=== PATIENT | male | born 1970 | race Caucasian/White ===

== ENCOUNTER 2020-09-05 11:57 | Emergency (ER) | payer MEDICAID ==
[~2020-09-05] VITALS: Ht 180.3 cm; Wt 79.5 kg
[~2020-09-05 11:57] MED LIST: LIDOcaine 1% W/epiNEPHrine 1:100,000 20ml vial ONE
[2020-09-05 12:41] VITALS: BP 117/81
[2020-09-05] MEDS ORDERED: SULF1TAB45 PO (13:37)
[2020-09-05] MEDS ORDERED: CEPH250T PO (13:37)
== END 2020-09-05 14:01 | disposition home or self-care (01) ==
LOC: ER 11:57
DX: L02.512 Cutaneous abscess of left hand (principal); Z79.2 Long term (current) use of antibiotics
CPT/HCPCS: 10060; 26010; 99283

== ENCOUNTER 2020-09-11 19:40 | Emergency (ER) | payer MEDICAID ==
[~2020-09-11] VITALS: Ht 177.8 cm; Wt 77.3 kg
[~2020-09-11 19:40] MED LIST changes: +CEPH250T PO; -LIDOcaine 1% W/epiNEPHrine 1:100,000 20ml vial ONE; +SULF1TAB45 PO
[2020-09-11] MEDS ORDERED: CEPH250T PO (21:06)
[2020-09-11 21:10] VITALS: BP 123/83
== END 2020-09-11 21:11 | disposition home or self-care (01) ==
LOC: ER 19:40
DX: Z48.01 Encounter for change or removal of surgical wound dressing (principal); M79.642 Pain in left hand; Z79.899 Other long term (current) drug therapy
CPT/HCPCS: 99283

== ENCOUNTER 2021-03-10 08:05 | Emergency (ER) | payer MEDICAID, OTHER ==
[~2021-03-10] VITALS: Ht 180.3 cm; Wt 88.6 kg
[2021-03-10 08:14] VITALS: BP 155/90
[2021-03-10] MEDS ORDERED: SULF1TAB45 PO (08:46)
[2021-03-10] MEDS ORDERED: HYDROcodone/acetaminophen 5mg/325mg tablet PO ONE (08:50)
[2021-03-10] MEDS ORDERED: ondansetron 4mg rapidly disintigrating tab PO ONE (08:50)
== END 2021-03-10 09:14 ==
LOC: EEVIPCON 08:05 → ER 08:05
DX: K40.90 Unilateral inguinal hernia, without obstruction or gangrene, not specified as recurrent (principal); Z79.2 Long term (current) use of antibiotics
CPT/HCPCS: 99283; 99284

== ENCOUNTER 2021-12-06 12:12 | Emergency (ER) | payer MEDICAID, OTHER ==
[~2021-12-06] VITALS: Ht 177.8 cm; Wt 100.0 kg
[2021-12-06 12:43] VITALS: BP 143/86
--- NOTE | 2021-12-06 13:59 | NUR ---
Lab called for positive Covid 19 result. NEREIDA Hollins notified.
[2021-12-06] MEDS ORDERED: NIRM1TAB PO (14:06)
[2021-12-06] MEDS ORDERED: insulin regular, human 10 units/0.1 ml syringe SQ ONE (14:10)
== END 2021-12-06 14:18 | disposition home or self-care (01) ==
LOC: ER 12:13
DX: U07.1 COVID-19 (principal); I10 Essential (primary) hypertension; E78.00 Pure hypercholesterolemia, unspecified; E11.9 Type 2 diabetes mellitus without complications; Z79.899 Other long term (current) drug therapy
CPT/HCPCS: 71045; 87502; 87503; 87635; 99284; C9803

== ENCOUNTER 2022-01-17 20:33 | Emergency (ER) | payer MEDICAID ==
[~2022-01-17] VITALS: Ht 177.8 cm; Wt 84.1 kg
[~2022-01-17 20:33] MED LIST changes: -CEPH250T PO; +NIRM1TAB PO; -SULF1TAB45 PO
[2022-01-17 22:00] LABS: BASOPHILS % (AUTO) 0.6 % (0-1); EOSINOPHILS # (AUTO) 0.1 X10'3 (0-0.9); EOSINOPHILS % (AUTO) 1.2 % (0-6); HEMATOCRIT 46.9 % (42.0-52.0); HEMOGLOBIN 16.1 g/dl (14.0-17.9); LYMPHOCYTES # (AUTO) 3.2 X10'3 (1.1-4.8); LYMPHOCYTES % (AUTO) 38.7 % (21-51); MEAN CORPUSCULAR HEMOGLOBIN 27.8 PG (27.0-31.0); MEAN CORPUSCULAR HGB CONC 34.3 g/dL (33.0-36.5); MEAN CORPUSCULAR VOLUME 81.1 FL (78-98); MEAN PLATELET VOLUME 8.4 FL (7.4-10.4); MONOCYTES # (AUTO) 0.6 X10'3 (0-0.9); MONOCYTES % (AUTO) 7.6 % (2-12); NEUTROPHILS # (AUTO) 4.3 X10'3 (1.8-7.7); NEUTROPHILS % (AUTO) 51.9 % (42-75); PLATELET COUNT 306 X10'3 (140-440); RED BLOOD COUNT 5.78 X10'6 (4.70-6.10); RED CELL DISTRIBUTION WIDTH 14.6 % (11.5-14.5); WHITE BLOOD COUNT 8.3 X10'3 (4.5-11.0)
[2022-01-17 22:13] LABS: ALANINE AMINOTRANSFERASE 38 U/L (12-78); ALBUMIN 4.2 G/DL (3.4-5.0); ALBUMIN/GLOBULIN RATIO 1.1 (1.1-1.5); ALKALINE PHOSPHATASE 70 IU/L (46-116); ANION GAP 8 (8-16); ASPARTATE AMINO TRANSFERASE 18 U/L (10-37); BILIRUBIN,TOTAL 0.4 MG/DL (0.1-1.0); BLOOD UREA NITROGEN 13 MG/DL (7-18); CALCIUM 9.6 MG/DL (8.5-10.1); CHLORIDE 98 MMOL/L (99-107); GLUCOSE 275 MG/DL (70-104); POTASSIUM 4.1 MMOL/L (3.5-5.1); SODIUM 136 MMOL/L (135-145); TOTAL CARBON DIOXIDE 29.7 MMOL/L (24-32); TOTAL PROTEIN 8.2 G/DL (6.4-8.2); eGFR 78 ML/MIN
[2022-01-18] MEDS ORDERED: metFORMIN 500mg tablet PO ONE (03:10)
[2022-01-18] MEDS ORDERED: Insulin Detemir pen SQ SCH (03:10)
[2022-01-18] MEDS ORDERED: METF-438 PO (03:13)
[2022-01-18] MEDS ORDERED: insulin glargine (Lantus) pen - multi-dose SQ SCH (03:14)
[2022-01-18] MEDS ORDERED: amox tr/potassium clavulanate 875/125mg TAB PO ONE (03:15)
[2022-01-18] MEDS ORDERED: AMOX-117 PO ×3 (03:16→03:17)
[2022-01-18 03:42] VITALS: BP 128/79
== END 2022-01-18 03:43 | disposition home or self-care (01) ==
LOC: ER 20:34
DX: S31.159A Open bite of abdominal wall, unspecified quadrant without penetration into peritoneal cavity, initial encounter (principal); S81.852A Open bite, left lower leg, initial encounter; S81.851A Open bite, right lower leg, initial encounter; E11.65 Type 2 diabetes mellitus with hyperglycemia; W54.0XXA Bitten by dog, initial encounter; Y93.89 Activity, other specified; Y92.89 Other specified places as the place of occurrence of the external cause; Y99.8 Other external cause status
CPT/HCPCS: 36415; 71045; 80053; 82948; 83605; 84145; 85025; 87040; 96372; 99284; J1815

== ENCOUNTER 2022-02-11 13:12 | Emergency (ER) | payer MEDICAID ==
[~2022-02-11] VITALS: Ht 177.8 cm; Wt 86.4 kg
[~2022-02-11 13:12] MED LIST changes: +AMOX-117 PO; +METF-438 PO
[2022-02-11 14:16] VITALS: BP 129/84
--- NOTE | 2022-02-11 14:20 | NUR ---
PRIOR TO LEAVING TRIAGE PT STATES HE IS GOING TO GO ACROSS THE STREET TO GET SOMTHING TO EAT. EDUCATED PT IF HE LEAVES AND THEY CALL HIM AND HE IS NOT HERE HE WILL NEED TO RE CHECK IN AND WAIT AGAIN. PT STATES "I DONT, CARE I GOT MY FOOD STAMPS AND IM HUNGERY SO I WILL BE BACK WHEN I GET BACK"
[2022-02-11] MEDS ORDERED: bacitracin 15gm ointment TP ONE (17:00)
[2022-02-11] MEDS ORDERED: sulfamethoxazole/trimethoprim DS (800/160mg) tablet PO ONE (17:00)
[2022-02-11] MEDS ORDERED: SULF1TAB49 PO (17:05)
== END 2022-02-11 17:19 | disposition home or self-care (01) ==
LOC: ER 13:13
DX: L98.8 Other specified disorders of the skin and subcutaneous tissue (principal); I10 Essential (primary) hypertension; E78.00 Pure hypercholesterolemia, unspecified; E11.9 Type 2 diabetes mellitus without complications; Z59.00 Homelessness unspecified; Z56.0 Unemployment, unspecified; Z79.899 Other long term (current) drug therapy; Z79.84 Long term (current) use of oral hypoglycemic drugs
CPT/HCPCS: 87070; 87077; 87186; 99283

== ENCOUNTER 2022-03-01 13:04 | Emergency (ER) | payer MEDICAID ==
[~2022-03-01] VITALS: Ht 177.8 cm; Wt 86.4 kg
[2022-03-01 13:10] VITALS: BP 128/80
[2022-03-01] MEDS ORDERED: ibuprofen tablet 400 MG TABLET PO ONE (15:10)
[2022-03-01] MEDS ORDERED: SULF1TAB49 PO (15:37)
[2022-03-01] MEDS ORDERED: CEPH500C2 PO (15:37)
== END 2022-03-01 15:40 | disposition home or self-care (01) ==
LOC: ER 13:04
DX: L73.9 Follicular disorder, unspecified (principal); L03.311 Cellulitis of abdominal wall; E78.00 Pure hypercholesterolemia, unspecified; I10 Essential (primary) hypertension; E11.9 Type 2 diabetes mellitus without complications; Z59.00 Homelessness unspecified; Z56.0 Unemployment, unspecified; Z79.2 Long term (current) use of antibiotics; Z79.899 Other long term (current) drug therapy
CPT/HCPCS: 99283

== ENCOUNTER 2022-06-23 18:43 | Emergency (ER) | payer MEDICAID ==
[~2022-06-23] VITALS: Ht 177.8 cm; Wt 81.8 kg
[2022-06-23] MEDS ORDERED: LIDOcaine 2% 5ml jelly TOP ONE (20:10)
[2022-06-23] MEDS ORDERED: ibuprofen tablet 400 MG TABLET PO ONE (20:10)
[2022-06-23] MEDS ORDERED: cephalexin 250mg capsule PO ONE (20:10)
[2022-06-23] MEDS ORDERED: acetaminophen 325mg tablet PO ONE (20:10)
[2022-06-23] MEDS ORDERED: sulfamethoxazole/trimethoprim DS (800/160mg) tablet PO ONE (20:10)
[2022-06-23] MEDS ORDERED: CEPH-585 PO (20:13)
[2022-06-23] MEDS ORDERED: SULF1TAB49 PO (20:13)
[2022-06-23] MEDS ORDERED: METF-438 PO (20:13)
[2022-06-23 20:21] VITALS: BP 121/80
[2022-06-23] MEDS ORDERED: LIDOcaine 2% jelly 6ml syringe ***for topical use only TOP ONE (20:35)
== END 2022-06-23 21:09 | disposition home or self-care (01) ==
LOC: ER 18:44
DX: J34.0 Abscess, furuncle and carbuncle of nose (principal); R22.43 Localized swelling, mass and lump, lower limb, bilateral; E78.00 Pure hypercholesterolemia, unspecified; I10 Essential (primary) hypertension; E11.9 Type 2 diabetes mellitus without complications; Z59.00 Homelessness unspecified; Z56.0 Unemployment, unspecified; Z79.899 Other long term (current) drug therapy
CPT/HCPCS: 82948; 99284; A6402

== ENCOUNTER 2022-08-20 19:25 | Emergency (ER) | payer MEDICAID ==
[~2022-08-20] VITALS: Ht 177.8 cm; Wt 77.3 kg
[2022-08-20 21:31] LABS: BASOPHILS # (AUTO) 0.1 X10'3 (0-0.2); BASOPHILS % (AUTO) 0.7 % (0-1); EOSINOPHILS # (AUTO) 0.1 X10'3 (0-0.9); EOSINOPHILS % (AUTO) 0.6 % (0-6); HEMATOCRIT 41.9 % (42.0-52.0); HEMOGLOBIN 13.6 g/dl (14.0-17.9); LYMPHOCYTES # (AUTO) 0.5 X10'3 (1.1-4.8); LYMPHOCYTES % (AUTO) 4.5 % (21-51); MEAN CORPUSCULAR HEMOGLOBIN 26.6 PG (27.0-31.0); MEAN CORPUSCULAR HGB CONC 32.4 g/dL (33.0-36.5); MONOCYTES # (AUTO) 0.9 X10'3 (0-0.9); MONOCYTES % (AUTO) 7.4 % (2-12); NEUTROPHILS # (AUTO) 10.2 X10'3 (1.8-7.7); NEUTROPHILS % (AUTO) 86.8 % (42-75); PLATELET COUNT 285 X10'3 (140-440); RED BLOOD COUNT 5.11 X10'6 (4.70-6.10); RED CELL DISTRIBUTION WIDTH 14.2 % (11.5-14.5); WHITE BLOOD COUNT 11.8 X10'3 (4.5-11.0)
[2022-08-20 21:46] LABS: ALANINE AMINOTRANSFERASE 16 U/L (12-78); ALBUMIN 3.4 G/DL (3.4-5.0); ALBUMIN/GLOBULIN RATIO 0.9 (1.1-1.5); ALKALINE PHOSPHATASE 63 IU/L (46-116); ANION GAP 9 (8-16); ASPARTATE AMINO TRANSFERASE 17 U/L (10-37); BILIRUBIN,TOTAL 0.5 MG/DL (0.1-1.0); BLOOD UREA NITROGEN 17 MG/DL (7-18); CHLORIDE 99 MMOL/L (99-107); CREATININE 0.85 MG/DL (0.60-1.10); GLUCOSE 152 MG/DL (70-104); POTASSIUM 4.1 MMOL/L (3.5-5.1); SODIUM 135 MMOL/L (135-145); TOTAL CARBON DIOXIDE 27.2 MMOL/L (24-32); TOTAL PROTEIN 7.3 G/DL (6.4-8.2); eGFR > 90 ML/MIN
[2022-08-21 00:23] VITALS: BP 134/93
[2022-08-21 00:32] LABS: PLATELET ESTIMATE NORMAL; TOTAL CELLS COUNTED 100
[2022-08-21] MEDS ORDERED: azithromycin 250mg tablet PO ONE (01:25)
[2022-08-21] MEDS ORDERED: CefTRIAXone 2gm/D5W 50ml BAG 50 ML IV ONE (01:25)
[2022-08-21] MEDS ORDERED: ketorolac trometh inj. 60 MG/2 ML VIAL IM ONE (01:30)
[2022-08-21] MEDS ORDERED: HYDROcodone & chlorphen. 10-8mg/5ml oral susp. PO ONE (01:30)
[2022-08-21] MEDS ORDERED: DEXT15LI3 PO (02:09)
[2022-08-21] MEDS ORDERED: CEFU500T66 PO (02:09)
[2022-08-21] MEDS ORDERED: PRED10TA23 PO (02:09)
[2022-08-21] MEDS ORDERED: AZIT500T PO (02:09)
[2022-08-21] MEDS ORDERED: guaiFENesin/DM 10ml UD oral syrup PO ONE (02:15)
== END 2022-08-21 02:35 | disposition home or self-care (01) ==
LOC: ER 19:25
DX: J20.9 Acute bronchitis, unspecified (principal); J44.1 Chronic obstructive pulmonary disease with (acute) exacerbation; E11.9 Type 2 diabetes mellitus without complications; E78.00 Pure hypercholesterolemia, unspecified; I10 Essential (primary) hypertension; F17.200 Nicotine dependence, unspecified, uncomplicated; F12.10 Cannabis abuse, uncomplicated; Z59.00 Homelessness unspecified; Z56.0 Unemployment, unspecified; Z79.899 Other long term (current) drug therapy; Z79.1 Long term (current) use of non-steroidal anti-inflammatories (NSAID)
CPT/HCPCS: 36415; 71046; 80053; 83605; 83880; 85007; 85025; 87040; 96365; 96372; 99284; J0696; J1885; 87077; 87186

== ENCOUNTER 2022-10-22 02:45 | Emergency (ER) | payer MEDICAID, OTHER ==
[~2022-10-22] VITALS: Ht 177.8 cm; Wt 77.3 kg
[~2022-10-22 02:45] MED LIST changes: +CEFU500T66 PO; +DEXT15LI3 PO
[2022-10-22 03:12] VITALS: BP 125/85
[2022-10-22] MEDS ORDERED: LIDOcaine 1% W/epiNEPHrine 1:100,000 20ml vial SQ ONE (04:55)
[2022-10-22] MEDS ORDERED: SULF1TAB49 PO (05:06)
[2022-10-22] MEDS ORDERED: IBUP-1985 PO (05:06)
== END 2022-10-22 05:28 | disposition home or self-care (01) ==
LOC: ER 02:46
DX: L72.3 Sebaceous cyst (principal); E78.00 Pure hypercholesterolemia, unspecified; I10 Essential (primary) hypertension; E11.9 Type 2 diabetes mellitus without complications; F12.90 Cannabis use, unspecified, uncomplicated; Z59.00 Homelessness unspecified; Z56.0 Unemployment, unspecified
CPT/HCPCS: 99283

== ENCOUNTER 2022-10-25 11:20 | Emergency (ER) | payer OTHER ==
[~2022-10-25] VITALS: Ht 177.8 cm; Wt 72.7 kg
[~2022-10-25 11:20] MED LIST changes: +IBUP-1985 PO; +SULF1TAB49 PO
[2022-10-25 11:51] VITALS: BP 146/94
[2022-10-25] MEDS ORDERED: bacitracin 15gm ointment TP ONE (12:40)
[2022-10-25] MEDS ORDERED: LIDOcaine 1% 30ml preserv. free vial IJ ONE (12:40)
[2022-10-25] MEDS ORDERED: DOXYCYCLINE 100MG CAPSULE PO STA (12:41)
[2022-10-25] MEDS ORDERED: DOXY150T5 PO (12:41)
== END 2022-10-25 14:01 | disposition home or self-care (01) ==
LOC: ER 11:20
DX: L02.811 Cutaneous abscess of head [any part, except face] (principal); I10 Essential (primary) hypertension; E78.00 Pure hypercholesterolemia, unspecified; E11.9 Type 2 diabetes mellitus without complications; F12.90 Cannabis use, unspecified, uncomplicated; Z59.00 Homelessness unspecified; Z56.0 Unemployment, unspecified
CPT/HCPCS: 10060; 99283; A6449

== ENCOUNTER 2022-11-07 21:59 | Emergency (ER) | payer MEDICAID, OTHER ==
[~2022-11-07] VITALS: Ht 177.8 cm; Wt 80.0 kg
[~2022-11-07 21:59] MED LIST changes: -SULF1TAB49 PO
[2022-11-07 22:14] VITALS: BP 126/91
[2022-11-07] MEDS ORDERED: acetaminophen 325mg tablet PO ONE (23:40)
[2022-11-07] MEDS ORDERED: ibuprofen tablet 400 MG TABLET PO ONE (23:40)
[2022-11-07] MEDS ORDERED: IBUP-1985 PO (23:43)
[2022-11-08] MEDS ORDERED: HYDR-3973 PO (21:14)
== END 2022-11-07 23:57 | disposition home or self-care (01) ==
LOC: ER 22:00
DX: M54.2 Cervicalgia (principal); E78.00 Pure hypercholesterolemia, unspecified; I10 Essential (primary) hypertension; E11.9 Type 2 diabetes mellitus without complications; F12.90 Cannabis use, unspecified, uncomplicated; Z59.00 Homelessness unspecified; Z56.0 Unemployment, unspecified
CPT/HCPCS: 99283

== ENCOUNTER 2022-11-08 19:21 | Emergency (ER) | payer MEDICAID ==
[~2022-11-08] VITALS: Ht 177.8 cm; Wt 77.3 kg
[2022-11-08 19:22] VITALS: BP 126/94
[2022-11-08] MEDS ORDERED: HYDROcodone/acetaminophen 10/325mg tab PO ONE (20:45)
[2022-11-08] MEDS ORDERED: HYDR-3973 PO (21:14)
== END 2022-11-08 21:34 | disposition home or self-care (01) ==
LOC: ER 19:21
DX: S93.492A Sprain of other ligament of left ankle, initial encounter (principal); E78.00 Pure hypercholesterolemia, unspecified; E11.9 Type 2 diabetes mellitus without complications; F12.10 Cannabis abuse, uncomplicated; Z59.00 Homelessness unspecified; Z56.0 Unemployment, unspecified; I10 Essential (primary) hypertension; Z79.899 Other long term (current) drug therapy; W18.39XA Other fall on same level, initial encounter; Y93.89 Activity, other specified; Y92.89 Other specified places as the place of occurrence of the external cause; Y99.8 Other external cause status
CPT/HCPCS: 29515; 73610; 73630; 99284; L1930

== ENCOUNTER 2022-12-19 21:13 | Emergency (ER) | payer MEDICAID ==
[~2022-12-19] VITALS: Ht 177.8 cm; Wt 77.0 kg
[2022-12-19 21:25] VITALS: BP 130/83
== END 2022-12-19 22:15 | disposition home or self-care (01) ==
LOC: ER 21:14
DX: Z00.00 Encounter for general adult medical examination without abnormal findings (principal); E78.00 Pure hypercholesterolemia, unspecified; I10 Essential (primary) hypertension; E11.9 Type 2 diabetes mellitus without complications; F12.90 Cannabis use, unspecified, uncomplicated; F15.90 Other stimulant use, unspecified, uncomplicated
CPT/HCPCS: 99281

== ENCOUNTER 2023-01-14 01:41 | Emergency (ER) | payer MEDICAID ==
[~2023-01-14] VITALS: Ht 177.8 cm; Wt 77.4 kg
[~2023-01-14 01:41] MED LIST changes: +AZIT-164 PO
[2023-01-14 02:00] VITALS: TEMP 97.8
[2023-01-14 03:59] LABS: BILIRUBIN,URINE NEGATIVE (Neg); CLARITY,URINE CLEAR (Clear); COLOR,URINE YELLOW (Yellow); GLUCOSE, URINE >=1000 mg/dl (Neg); KETONES,URINE NEGATIVE (Neg); LEUKOCYTE ESTERASE ,URINE NEGATIVE (Neg); NITRITES, URINE NEGATIVE (Neg); OCCULT BLOOD,URINE NEGATIVE (Neg); PH,URINE 5.5 (4.8-8.0); PROTEIN,URINE TRACE mg/dl (Neg); UROBILINOGEN,URINE 0.2 E.U/dL (0.2-1.0)
[2023-01-14 04:06] LABS: UA COLLECTION TYPE CLN CATCH MIDSTREAM
[2023-01-14 04:09] LABS: BACTERIA,URINE NONE SEEN /HPF (Neg); HYALINE CASTS 0-3 /LPF (NEGATIVE); MUCUS STRANDS NONE SEEN /LPF (Neg); RBC,URINE 0-2 /HPF (0-2); SQUAMOUS EPITHELIAL CELL,UR NONE SEEN /LPF (FEW); WBC,URINE 0-4 /HPF (0-4)
[2023-01-14] MEDS ORDERED: ibuprofen tablet 400 MG TABLET PO ONE (04:20)
--- NOTE | 2023-01-14 04:49 | NUR ---
per dr dubose accuchmisty not needed.
[2023-01-14 04:51] VITALS: BP 116/87; PULSE 71; RESP 17; O2SAT 98
== END 2023-01-14 04:52 | disposition home or self-care (01) ==
LOC: ER 01:41
DX: S39.012A Strain of muscle, fascia and tendon of lower back, initial encounter (principal); Z20.822 Contact with and (suspected) exposure to COVID-19; B34.9 Viral infection, unspecified; E78.00 Pure hypercholesterolemia, unspecified; I10 Essential (primary) hypertension; E11.9 Type 2 diabetes mellitus without complications; Z79.899 Other long term (current) drug therapy; Z86.14 Personal history of Methicillin resistant Staphylococcus aureus infection
CPT/HCPCS: 36415; 71045; 81001; 87811; 99284

== ENCOUNTER 2024-03-21 02:04 | Emergency (ER) | payer MEDICAID ==
[~2024-03-21] VITALS: Ht 170.2 cm; Wt 79.5 kg
[~2024-03-21 02:04] MED LIST changes: -AZIT-164 PO; -DEXT15LI3 PO; +DEXT15LI31 PO
[2024-03-21 02:20] VITALS: TEMP 98.2
[2024-03-21 03:08] LABS: BILIRUBIN,URINE NEGATIVE (Neg); CLARITY,URINE CLOUDY (Clear); COLOR,URINE YELLOW (Yellow); GLUCOSE, URINE >=1000 mg/dl (Neg); KETONES,URINE NEGATIVE (Neg); LEUKOCYTE ESTERASE ,URINE NEGATIVE (Neg); NITRITES, URINE NEGATIVE (Neg); OCCULT BLOOD,URINE NEGATIVE (Neg); PH,URINE 5.5 (4.8-8.0); PROTEIN,URINE NEGATIVE (Neg); UROBILINOGEN,URINE 0.2 E.U/dL (0.2-1.0)
[2024-03-21] MEDS: normal saline 1000ML IV soln IVB ONE (03:13)
[2024-03-21 03:16] LABS: UA COLLECTION TYPE CLN CATCH MIDSTREAM
[2024-03-21 03:21] LABS: WBC,URINE 0-4 /HPF (0-4)
[2024-03-21 03:22] LABS: BACTERIA,URINE NONE SEEN /HPF (Neg); RBC,URINE 0-2 /HPF (0-2); SQUAMOUS EPITHELIAL CELL,UR NONE SEEN /LPF (FEW)
[2024-03-21 03:23] LABS: BASOPHILS # (AUTO) 0.1 X10'3 (0-0.2); BASOPHILS % (AUTO) 0.7 % (0-1); EOSINOPHILS # (AUTO) 0.1 X10'3 (0-0.9); HEMATOCRIT 46.3 % (42.0-52.0); HEMOGLOBIN 15.5 g/dl (14.0-17.9); LYMPHOCYTES % (AUTO) 25.4 % (21-51); MEAN CORPUSCULAR HEMOGLOBIN 28.5 PG (27.0-31.0); MEAN CORPUSCULAR HGB CONC 33.5 g/dL (33.0-36.5); MEAN CORPUSCULAR VOLUME 85.2 FL (78-98); MEAN PLATELET VOLUME 8.7 FL (7.4-10.4); MONOCYTES # (AUTO) 0.7 X10'3 (0-0.9); MONOCYTES % (AUTO) 8.5 % (2-12); NEUTROPHILS # (AUTO) 5.1 X10'3 (1.8-7.7); NEUTROPHILS % (AUTO) 64.4 % (42-75); PLATELET COUNT 230 X10'3 (140-440); RED BLOOD COUNT 5.43 X10'6 (4.70-6.10); RED CELL DISTRIBUTION WIDTH 13.8 % (11.5-14.5); WHITE BLOOD COUNT 7.9 X10'3 (4.5-11.0)
[2024-03-21 03:59] LABS: ALBUMIN 3.4 G/DL (3.4-5.0); ANION GAP 5 (8-16); BLOOD UREA NITROGEN 18 MG/DL (7-18); BUN/CREATININE RATIO 15.4 (10.0-20.0); CALCIUM 8.5 MG/DL (8.5-10.1); CHLORIDE 99 MMOL/L (99-107); CREATININE 1.17 MG/DL (0.60-1.10); POTASSIUM 4.2 MMOL/L (3.5-5.1); SODIUM 133 MMOL/L (135-145); TOTAL CARBON DIOXIDE 28.9 MMOL/L (24-32); eCRCL 67 ML/MIN; eGFR 65 ML/MIN
[2024-03-21 04:27] LABS: GLUCOSE 406 MG/DL (70-104)
[2024-03-21] MEDS: insulin regular, human 10 units/0.1 ml syringe IV ONE (05:11)
[2024-03-21 05:30] VITALS: BP 131/96; PULSE 103; RESP 17; O2SAT 99
[2024-03-21] MEDS ORDERED: GLIP10TA21 PO (05:40)
[2024-03-21] MEDS ORDERED: METF-438 PO (05:40)
== END 2024-03-21 05:50 | disposition home or self-care (01) ==
LOC: ER 02:05
DX: E11.65 Type 2 diabetes mellitus with hyperglycemia (principal); E78.00 Pure hypercholesterolemia, unspecified; I10 Essential (primary) hypertension; F12.90 Cannabis use, unspecified, uncomplicated; F15.90 Other stimulant use, unspecified, uncomplicated; Z59.00 Homelessness unspecified; Z56.0 Unemployment, unspecified; Z79.2 Long term (current) use of antibiotics; Z79.899 Other long term (current) drug therapy; Z79.1 Long term (current) use of non-steroidal anti-inflammatories (NSAID)
CPT/HCPCS: 36415; 71045; 80048; 81001; 82948; 84145; 84484; 85025; 96361; 96374; 99284; J1815; J7030

== ENCOUNTER 2024-05-09 18:40 | Emergency (ER) | payer MEDICAID ==
[~2024-05-09] VITALS: Ht 177.8 cm; Wt 77.7 kg
[~2024-05-09 18:40] MED LIST changes: +GLIP10TA21 PO
[2024-05-09 18:42] VITALS: TEMP 98.7
[2024-05-09 21:52] LABS: BASOPHILS # (AUTO) 0.1 X10'3 (0-0.2); BASOPHILS % (AUTO) 0.9 % (0-1); EOSINOPHILS # (AUTO) 0.1 X10'3 (0-0.9); EOSINOPHILS % (AUTO) 0.7 % (0-6); HEMATOCRIT 40.9 % (42.0-52.0); HEMOGLOBIN 14.1 g/dl (14.0-17.9); LYMPHOCYTES # (AUTO) 2.4 X10'3 (1.1-4.8); LYMPHOCYTES % (AUTO) 22.1 % (21-51); MEAN CORPUSCULAR HEMOGLOBIN 28.9 PG (27.0-31.0); MEAN CORPUSCULAR HGB CONC 34.4 g/dL (33.0-36.5); MEAN CORPUSCULAR VOLUME 84.1 FL (78-98); MEAN PLATELET VOLUME 8.5 FL (7.4-10.4); MONOCYTES # (AUTO) 0.9 X10'3 (0-0.9); MONOCYTES % (AUTO) 8.2 % (2-12); NEUTROPHILS # (AUTO) 7.4 X10'3 (1.8-7.7); NEUTROPHILS % (AUTO) 68.1 % (42-75); PLATELET COUNT 234 X10'3 (140-440); RED BLOOD COUNT 4.87 X10'6 (4.70-6.10); RED CELL DISTRIBUTION WIDTH 13.4 % (11.5-14.5); WHITE BLOOD COUNT 10.8 X10'3 (4.5-11.0)
[2024-05-09] MEDS: sulfamethoxazole/trimethoprim DS (800/160mg) tablet PO STA (22:05)
[2024-05-09 22:08] LABS: ALANINE AMINOTRANSFERASE 19 U/L (12-78); ALBUMIN/GLOBULIN RATIO 0.9 (1.1-1.5); ALKALINE PHOSPHATASE 61 IU/L (46-116); ANION GAP 6 (8-16); ASPARTATE AMINO TRANSFERASE 9 U/L (10-37); BILIRUBIN,TOTAL 0.4 MG/DL (0.1-1.0); BLOOD UREA NITROGEN 14 MG/DL (7-18); BUN/CREATININE RATIO 15.1 (10.0-20.0); CHLORIDE 101 MMOL/L (99-107); CREATININE 0.93 MG/DL (0.60-1.10); GLUCOSE 328 MG/DL (70-104); SODIUM 135 MMOL/L (135-145); TOTAL CARBON DIOXIDE 27.7 MMOL/L (24-32); TOTAL PROTEIN 6.4 G/DL (6.4-8.2); eCRCL 93 ML/MIN; eGFR 84 ML/MIN
[2024-05-09 22:26] LABS: ETHANOL < 10 MG/DL (<10)
[2024-05-09 22:29] LABS: URINE AMPHETAMINE SCREEN POSITIVE (Neg); URINE BARBITUATE SCREEN NEGATIVE (Neg); URINE BENZODIAZEPINES SCREEN NEGATIVE (Neg); URINE CANNABINOID SCREEN POSITIVE (Neg); URINE COCAINE SCREEN NEGATIVE (Neg); URINE METHADONE SCREEN NEGATIVE (Neg); URINE OPIATE SCREEN NEGATIVE (Neg); URINE PHENCYCLIDINE SCREEN NEGATIVE (Neg)
[2024-05-09 22:37] LABS: MAGNESIUM 1.9 MG/DL (1.5-2.4)
[2024-05-09] MEDS ORDERED: SULF1TAB49 PO (23:27)
[2024-05-09 23:35] VITALS: BP 155/78; PULSE 99; RESP 18; O2SAT 99
== END 2024-05-09 23:36 | disposition home or self-care (01) ==
LOC: ER 18:40
DX: L02.415 Cutaneous abscess of right lower limb (principal); R06.02 Shortness of breath; E11.9 Type 2 diabetes mellitus without complications; E78.00 Pure hypercholesterolemia, unspecified; I10 Essential (primary) hypertension; F12.90 Cannabis use, unspecified, uncomplicated; F15.90 Other stimulant use, unspecified, uncomplicated; Z56.0 Unemployment, unspecified; Z59.00 Homelessness unspecified; Z79.1 Long term (current) use of non-steroidal anti-inflammatories (NSAID); Z79.84 Long term (current) use of oral hypoglycemic drugs; Z79.899 Other long term (current) drug therapy; X58.XXXA Exposure to other specified factors, initial encounter; Y93.89 Activity, other specified; Y92.89 Other specified places as the place of occurrence of the external cause; Y99.8 Other external cause status
CPT/HCPCS: 36415; 71046; 80053; 80305; 80320; 83605; 83735; 84484; 85025; 93005; 99285

== ENCOUNTER 2024-05-31 14:37 | Emergency (ER) | payer MEDICAID ==
[~2024-05-31] VITALS: Ht 177.8 cm; Wt 70.0 kg
[2024-05-31] MEDS: ketorolac trometh 15mg/ml vial 15 MG/ML ML IM ONE (16:01)
[2024-05-31 17:00] LABS: BASOPHILS # (AUTO) 0.1 X10'3 (0-0.2); BASOPHILS % (AUTO) 0.2 % (0-1); EOSINOPHILS % (AUTO) 0.1 % (0-6); HEMATOCRIT 41.3 % (42.0-52.0); HEMOGLOBIN 14.3 g/dl (14.0-17.9); LYMPHOCYTES # (AUTO) 0.7 X10'3 (1.1-4.8); LYMPHOCYTES % (AUTO) 3.2 % (21-51); MEAN CORPUSCULAR HEMOGLOBIN 28.9 PG (27.0-31.0); MEAN CORPUSCULAR HGB CONC 34.6 g/dL (33.0-36.5); MEAN CORPUSCULAR VOLUME 83.4 FL (78-98); MEAN PLATELET VOLUME 8.6 FL (7.4-10.4); MONOCYTES # (AUTO) 1.6 X10'3 (0-0.9); MONOCYTES % (AUTO) 7.3 % (2-12); NEUTROPHILS # (AUTO) 19.9 X10'3 (1.8-7.7); NEUTROPHILS % (AUTO) 89.2 % (42-75); PLATELET COUNT 213 X10'3 (140-440); RED BLOOD COUNT 4.95 X10'6 (4.70-6.10); RED CELL DISTRIBUTION WIDTH 13.2 % (11.5-14.5); WHITE BLOOD COUNT 22.3 X10'3 (4.5-11.0)
[2024-05-31 17:04] LABS: ALBUMIN 3.3 G/DL (3.4-5.0); ANION GAP 8 (8-16); BLOOD UREA NITROGEN 13 MG/DL (7-18); BUN/CREATININE RATIO 12.9 (10.0-20.0); CALCIUM 8.4 MG/DL (8.5-10.1); CHLORIDE 99 MMOL/L (99-107); CREATININE 1.01 MG/DL (0.60-1.10); GLUCOSE 242 MG/DL (70-104); POTASSIUM 3.8 MMOL/L (3.5-5.1); SODIUM 133 MMOL/L (135-145); TOTAL CARBON DIOXIDE 26.4 MMOL/L (24-32); eCRCL 82 ML/MIN; eGFR 77 ML/MIN
[2024-05-31] MEDS: normal saline 1000ML IV soln IVB ONE (17:41)
[2024-05-31 17:58] LABS: MAGNESIUM 1.6 MG/DL (1.5-2.4)
[2024-05-31 18:45] LABS: ALANINE AMINOTRANSFERASE 24 U/L (12-78); ALBUMIN 3.2 G/DL (3.4-5.0); ALKALINE PHOSPHATASE 62 IU/L (46-116); ASPARTATE AMINO TRANSFERASE 16 U/L (10-37); BILIRUBIN,DIRECT 0.2 MG/DL (0-0.3); BILIRUBIN,TOTAL 1.2 MG/DL (0.1-1.0); TOTAL PROTEIN 6.3 G/DL (6.4-8.2)
[2024-05-31] MEDS: ketorolac trometh 30MG/ML vial 30 MG/ML VIAL IV ONE (19:44)
[2024-05-31] MEDS: normal saline 1000ml 1,000 ML IV ONE (19:44)
[2024-05-31 20:29] VITALS: TEMP 97.7
[2024-05-31 20:55] LABS: BILIRUBIN,URINE SMALL (Neg); CLARITY,URINE SLIGHTLY CLOUDY (Clear); COLOR,URINE YELLOW (Yellow); GLUCOSE, URINE 250 mg/dl (Neg); KETONES,URINE TRACE mg/dl (Neg); LEUKOCYTE ESTERASE ,URINE NEGATIVE (Neg); NITRITES, URINE NEGATIVE (Neg); OCCULT BLOOD,URINE NEGATIVE (Neg); PH,URINE 5.5 (4.8-8.0); PROTEIN,URINE NEGATIVE (Neg); UROBILINOGEN,URINE 0.2 E.U/dL (0.2-1.0)
[2024-05-31 21:03] LABS: BACTERIA,URINE 1+ /HPF (Neg); MUCUS STRANDS MODERATE /LPF (Neg); RBC,URINE NONE SEEN /HPF (0-2); SQUAMOUS EPITHELIAL CELL,UR FEW /LPF (FEW); UA COLLECTION TYPE CLN CATCH MIDSTREAM; WBC,URINE 0-4 /HPF (0-4)
[2024-05-31 21:33] VITALS: BP 125/77; PULSE 80; RESP 16; O2SAT 95
== END 2024-06-01 03:46 | disposition home or self-care (01) ==
LOC: ER 14:38
DX: E11.40 Type 2 diabetes mellitus with diabetic neuropathy, unspecified (principal); M25.50 Pain in unspecified joint; E78.00 Pure hypercholesterolemia, unspecified; I10 Essential (primary) hypertension; F15.90 Other stimulant use, unspecified, uncomplicated; F12.90 Cannabis use, unspecified, uncomplicated
CPT/HCPCS: 36415; 71045; 80048; 80076; 81001; 83605; 83735; 84145; 85025; 87040; 87077; 87186; 93005; 96361; 96372; 96374; 99285; J1885; J7030; 96376

== ENCOUNTER 2024-06-09 14:58 | Emergency (ER) | payer MEDICAID ==
[~2024-06-09] VITALS: Ht 177.8 cm; Wt 80.1 kg
[2024-06-09 15:07] VITALS: BP 135/84; PULSE 89; RESP 16; O2SAT 98
[2024-06-09] MEDS ORDERED: CEPH-585 PO (18:51)
[2024-06-09] MEDS ORDERED: DOXY100C77 PO (18:51)
[2024-06-09] MEDS: ondansetron 4mg rapidly disintigrating tab PO ONE (19:18)
[2024-06-09] MEDS: bacitracin 15gm ointment TP ONE (19:18)
[2024-06-09] MEDS: DOXYCYCLINE 100MG CAPSULE PO STA (19:18)
[2024-06-09] MEDS: ceFAZolin 1gm IM kit IM ONE (19:19)
[2024-06-09 19:32] VITALS: TEMP 98.7
== END 2024-06-09 19:49 | disposition home or self-care (01) ==
LOC: ER 14:59
DX: L02.511 Cutaneous abscess of right hand (principal); E78.00 Pure hypercholesterolemia, unspecified; E11.9 Type 2 diabetes mellitus without complications; I10 Essential (primary) hypertension; F12.90 Cannabis use, unspecified, uncomplicated; F15.90 Other stimulant use, unspecified, uncomplicated; Z79.899 Other long term (current) drug therapy
CPT/HCPCS: 73130; 96372; 99284; J0690; A6258

== ENCOUNTER 2024-11-06 09:23 | Emergency (ER) | payer MEDICAID ==
[~2024-11-06] VITALS: Ht 177.8 cm; Wt 76.2 kg
[~2024-11-06 09:23] MED LIST changes: +GLIP-299 PO; -GLIP10TA21 PO
--- NOTE | 2024-11-06 10:45 | RADIOLOGY REPORT ---
CLINICAL INDICATION: Left Shoulder Pain TECHNIQUE: 3 radiographic views of the left shoulder were obtained. Comparison: None FINDINGS/IMPRESSION: There is no evidence of acute fracture or dislocation. The visualized joint space is well maintained. The alignment is anatomical. There is no radiopaque foreign body.
[2024-11-06] MEDS ORDERED: IBUP-1984 PO (12:30)
--- NOTE | 2024-11-06 12:31 | Physician Documentation ---
History of Present Illness General Chief Complaint: Shoulder pain Stated Complaint: FALL/L SHOULDER PAIN Time Seen by MD: 11:23 Primary Medical Doctor: None History of Present Illness Initial Comments Abdominal is a 54-year-old male who had a mechanical fall on top of all parking lot last night. States he tripped on a route and add on his left shoulder. Presents to the emergency department today requesting pain management evaluation. He does have some mild of reduced range of motion that is painful. He is grossly neurologically intact. Request in pain management and food. Medication Reconciliation Allergies: Coded Allergies: No Known Allergies (Unverified , 11/06/24) Scheduled Amox Tr/Potassium Clavulanate (Augmentin 875-125 Tablet), 1 TAB PO Q12H Cefuroxime Axetil (Cefuroxime), 1 TAB PO Q12H Dextromethorphan HBr (Tussin Cough), 5 ML PO Q12H Glipizide (Glipizide ER), 1 TAB PO DAILY Ibuprofen (Ibuprofen), 1 TAB PO Q8H Ibuprofen (Ibuprofen), 1 TAB PO Q8H Metformin HCl (Metformin HCl), 1 TAB PO Q12H Metformin HCl (Metformin HCl), 1 TAB PO Q12H Nirmatrelvir/Ritonavir (Paxlovid Co-Pack (Eua)), 3 EACH PO BID Past Medical History Past Medical History: High Cholesterol, Hypertension, Bronchitis, Hernia, Diabetes, *INFECTIOUS DZ*, MRSA Abscess Past Surgical History: noncontributory Alcohol Use: None Drug Use: marijuana, methamphetamine Lives In: Homeless Occupation: unemployed Review of Systems All Other Systems at this time: Reviewed and Negative Constitutional: Denies: fever Physical Exam Physical Exam Vital Signs: RN Vital Signs have been reviewed: Yes, Temperature: 96.8, Source: Oral, Heart Rate: 71, Respiratory Rate: 16, BP: 119/86, Pulse Oximetry: 99, Weight: 76.200 Oxygen Flow Rate: 0 General Appearance: alert, WD/WN, mild distress Head: normal inspection Face: normal inspection Pupils/EOM/Fundus: PERRLA Respiratory: no respiratory distress Back: normal inspection Extremities Mild reduced range of motion internal rotation external rotation abduction adduction Motor / Sensory: no motor deficit, no sensory deficit Psychiatric: normal mood/affect Skin: normal color, warm/dry Lymphatic: no adenopathy Progress Results/Orders Results/Orders Vital Signs 11/06/24 11/06/24 09:49 11:43 Temp 96.8 96.8 Pulse 72 71 Resp 17 16 B/P (MAP) 154/95 119/86 (97) Pulse Ox 100 99 O2 Flow Rate 0 0 Laboratory Tests Test 11/06/24 09:52 Glucometer 301 H Medical Decision Making Differential Diagnosis Examination history consistent with blunt injury left shoulder with normal x-ray findings without evidence of fracture or dislocation. Patient to be provided anti-inflammatory medication and sling. Safely discharged in the emergency department to follow up with the primary care physician and to return if worse. Departure Disposition: HOME / SELF CARE / HOMELESS Impression: Primary Impression: Shoulder joint pain Qualified Codes: M25.512 - Pain in left shoulder Condition: Stable Discharge Instructions: Shoulder Pain, [id number] Additional Instructions: She has worsening for comfort and support and take ibuprofen and/or Tylenol for discomfort. Make primary care follow up for re-evaluation. Thank you for this emergency department [facility]. Referrals: NO PRIMARY CARE PROVIDER (PCP) Prescriptions Ibuprofen* (Motrin*) 400 Mg Tablet 400 MG PO Q6H for 10 Days, #30 TAB Prov: SHAHBAZ VANEGAS PAC 11/06/24 Education Educated: Patient Educated regarding: diagnosis Signature Scribe Signature: . Attestation: . SHAHBAZ VANEGAS PAC Nov 06, 2024 12:31
[2024-11-06 12:47] VITALS: BP 121/80; PULSE 77; RESP 15; TEMP 96.8; O2SAT 99
== END 2024-11-06 12:49 | disposition home or self-care (01) ==
LOC: ER 09:23
DX: M25.512 Pain in left shoulder (principal); E11.9 Type 2 diabetes mellitus without complications; E78.00 Pure hypercholesterolemia, unspecified; I10 Essential (primary) hypertension; W19.XXXA Unspecified fall, initial encounter; Y93.89 Activity, other specified; Y92.89 Other specified places as the place of occurrence of the external cause; Y99.8 Other external cause status
CPT/HCPCS: 73030; 82948; 99284; A4565

== ENCOUNTER 2024-11-25 00:07 | Emergency (ER) | payer MEDICAID ==
[~2024-11-25] VITALS: Ht 180.3 cm; Wt 77.3 kg
[2024-11-25 00:16] VITALS: TEMP 98
[2024-11-25 01:28] LABS: BASOPHILS # (AUTO) 0.1 X10'3 (0-0.2); BASOPHILS % (AUTO) 0.9 % (0-1); EOSINOPHILS # (AUTO) 0.1 X10'3 (0-0.9); EOSINOPHILS % (AUTO) 1.1 % (0-6); HEMATOCRIT 45.3 % (42.0-52.0); HEMOGLOBIN 15.5 g/dl (14.0-17.9); LYMPHOCYTES # (AUTO) 2.8 X10'3 (1.1-4.8); LYMPHOCYTES % (AUTO) 27.3 % (21-51); MEAN CORPUSCULAR HEMOGLOBIN 28.3 PG (27.0-31.0); MEAN CORPUSCULAR HGB CONC 34.2 g/dL (33.0-36.5); MEAN CORPUSCULAR VOLUME 82.6 FL (78-98); MEAN PLATELET VOLUME 8.9 FL (7.4-10.4); MONOCYTES # (AUTO) 0.8 X10'3 (0-0.9); MONOCYTES % (AUTO) 8.2 % (2-12); NEUTROPHILS # (AUTO) 6.4 X10'3 (1.8-7.7); NEUTROPHILS % (AUTO) 62.5 % (42-75); PLATELET COUNT 256 X10'3 (140-440); RED BLOOD COUNT 5.48 X10'6 (4.70-6.10); RED CELL DISTRIBUTION WIDTH 13.4 % (11.5-14.5); WHITE BLOOD COUNT 10.2 X10'3 (4.5-11.0)
[2024-11-25 01:41] LABS: ALANINE AMINOTRANSFERASE 23 U/L (12-78); ALBUMIN 3.5 G/DL (3.4-5.0); ALBUMIN/GLOBULIN RATIO 1.1 (1.1-1.5); ALKALINE PHOSPHATASE 66 IU/L (46-116); ANION GAP 7 (8-16); ASPARTATE AMINO TRANSFERASE 13 U/L (10-37); BILIRUBIN,TOTAL 0.5 MG/DL (0.1-1.0); BLOOD UREA NITROGEN 13 MG/DL (7-18); BUN/CREATININE RATIO 13.5 (10.0-20.0); CALCIUM 8.4 MG/DL (8.5-10.1); CHLORIDE 101 MMOL/L (99-107); CREATININE 0.96 MG/DL (0.60-1.10); GLUCOSE 181 MG/DL (70-104); LIPASE 39 U/L (16-77); POTASSIUM 3.4 MMOL/L (3.5-5.1); SODIUM 138 MMOL/L (135-145); TOTAL CARBON DIOXIDE 30.4 MMOL/L (24-32); TOTAL PROTEIN 6.8 G/DL (6.4-8.2); eCRCL 92 ML/MIN; eGFR 81 ML/MIN
[2024-11-25 02:06] LABS: BILIRUBIN,URINE NEGATIVE (Neg); CLARITY,URINE CLEAR (Clear); COLOR,URINE YELLOW (Yellow); GLUCOSE, URINE >=1000 mg/dl (Neg); KETONES,URINE NEGATIVE (Neg); LEUKOCYTE ESTERASE ,URINE NEGATIVE (Neg); NITRITES, URINE NEGATIVE (Neg); OCCULT BLOOD,URINE NEGATIVE (Neg); PROTEIN,URINE NEGATIVE (Neg); UROBILINOGEN,URINE 0.2 E.U/dL (0.2-1.0)
[2024-11-25 02:08] LABS: UA COLLECTION TYPE CLN CATCH MIDSTREAM
[2024-11-25 02:12] LABS: RBC,URINE NONE SEEN /HPF (0-2); WBC,URINE NONE SEEN /HPF (0-4)
[2024-11-25 02:13] LABS: BACTERIA,URINE NONE SEEN /HPF (Neg); SQUAMOUS EPITHELIAL CELL,UR NONE SEEN /LPF (FEW)
--- NOTE | 2024-11-25 02:42 | Physician Documentation ---
History of Present Illness ~ Chief Complaint: Diarrhea Stated Complaint: DIARRHEA Time Seen by MD: 02:41 Primary Medical Doctor: None Mode of Arrival: POV HPI 54-year-old male presenting with diarrhea x1 week. He tells me that for the past 1 week he has been having 2 loose bowel movements daily. No fevers, chills or other infectious symptoms. No nausea or vomiting. No abdominal pain or cramping. No blood in the stool. No other related symptoms. He did not try any medications because I can not afford Imodium. He has been drinking and eating okay. No other acute concerns. Medication Reconciliation Allergies: Coded Allergies: No Known Allergies (Unverified , 11/06/24) Scheduled Amox Tr/Potassium Clavulanate (Augmentin 875-125 Tablet), 1 TAB PO Q12H Cefuroxime Axetil (Cefuroxime), 1 TAB PO Q12H Dextromethorphan HBr (Tussin Cough), 5 ML PO Q12H Glipizide (Glipizide ER), 1 TAB PO DAILY Ibuprofen (Ibuprofen), 1 TAB PO Q8H Ibuprofen (Ibuprofen), 1 TAB PO Q8H Metformin HCl (Metformin HCl), 1 TAB PO Q12H Metformin HCl (Metformin HCl), 1 TAB PO Q12H Nirmatrelvir/Ritonavir (Paxlovid Co-Pack (Eua)), 3 EACH PO BID Past Medical History Past Medical History: High Cholesterol, Hypertension, Bronchitis, Hernia, Diabetes, *INFECTIOUS DZ*, MRSA Abscess Past Surgical History: noncontributory Alcohol Use: None Drug Use: marijuana, methamphetamine Lives In: Homeless Occupation: unemployed Review of Systems Constitutional: Denies: fever Gastrointestinal: Reports: diarrhea; Denies: abdominal pain, vomiting Physical Exam Vital Signs: Temperature: 98.0, Source: Oral, Heart Rate: 72, Respiratory Rate: 18, BP: 134/89, Pulse Oximetry: 100, Weight: 77.270 Oxygen Flow Rate: 0 Physical Exam General: This is a thin and overall well-appearing middle-aged man who was sleeping when I enter the room HEENT: Atraumatic, oropharynx is moist Heart: Regular rate and rhythm, normal-appearing peripheral perfusion Lungs: Clear breath sounds bilateral, normal work of breathing, normal oxygen saturation on room air Abdomen: Soft, nondistended, nontender all quadrants Neuro: Alert and oriented, no focal deficits Psychiatric: Calm and cooperative with exam Progress Results/Orders Results/Orders Completed Orders - SHAHBAZ SMITH MD Cbc/Diff (11/25/24 00:18) BMP (11/25/24 00:18) Lipase (11/25/24 00:18) CMP (11/25/24 00:18) Ua W/Microscopic, Cult If Ind (11/25/24 01:53) Loperamide Capsule (Imodium Capsule) (11/25/24 02:55) Medications Received in ER Medications (Trade) Dose Ordered Sig/Mely Route PRN Reason Start Time Stop Time Status Last Admin Dose Admin (Imodium capsule) 4 mg ONCE ONCE PO 11/25/24 02:55 11/25/24 02:57 DC 11/25/24 03:00 4 MG Vital Signs 11/25/24 11/25/24 11/25/24 11/25/24 00:16 01:36 01:54 02:51 Temp 98.0 Pulse 81 72 83 Resp 17 16 18 18 B/P (MAP) 132/90 134/89 (104) 130/89 (103) Pulse Ox 99 100 95 O2 Flow Rate 0 Laboratory Tests Test 11/25/24 00:51 11/25/24 01:53 White Blood Count 10.2 Red Blood Count 5.48 Hemoglobin 15.5 Hematocrit 45.3 Mean Corpuscular Volume 82.6 Mean Corpuscular Hemoglobin 28.3 Mean Corpuscular Hemoglobin Concent 34.2 Red Cell Distribution Width 13.4 Platelet Count 256 Mean Platelet Volume 8.9 Neutrophils (%) (Auto) 62.5 Lymphocytes (%) (Auto) 27.3 Monocytes (%) (Auto) 8.2 Eosinophils (%) (Auto) 1.1 Basophils (%) (Auto) 0.9 Neutrophils # (Auto) 6.4 Lymphocytes # (Auto) 2.8 Monocytes # (Auto) 0.8 Eosinophils # (Auto) 0.1 Basophils # (Auto) 0.1 CBC Comment Sodium Level 138 Potassium Level 3.4 L Chloride Level 101 Carbon Dioxide Level 30.4 Anion Gap 7 L Blood Urea Nitrogen 13 Creatinine 0.96 Estimated GFR/1.73 m2 81 BUN/Creatinine Ratio 13.5 Glucose Level 181 H Calcium Level 8.4 L Total Bilirubin 0.5 Aspartate Amino Transf (AST/SGOT) 13 Alanine Aminotransferase (ALT/SGPT) 23 Alkaline Phosphatase 66 Total Protein 6.8 Albumin 3.5 Globulin 3.3 Albumin/Globulin Ratio 1.1 Lipase 39 Chemistry Comments Urine Specimen Description Cln catch midstream Urine Color Yellow Urine Clarity Clear Urine pH 6.0 Urine Specific Lyons >=1.030 Urine Protein Negative Urine Glucose (UA) >=1000 H Urine Ketones Negative Urine Occult Blood Negative Urine Nitrite Negative Urine Bilirubin Negative Urine Urobilinogen 0.2 Urine Leukocyte Esterase Negative Urine RBC None seen Urine WBC None seen Urine Squamous Epithelial Cells None seen Urine Bacteria None seen Urine Culture Indicated Not ind Volume Urine Centrifuged 10 ml Urine Comment Medical Decision Making Additional Comments The patient presents with 1 week of mild diarrhea, with no other associated symptoms including no fever, blood in the stool, or abdominal pain. His only request was for Imodium. Laboratory testing is unremarkable, no significant dehydration or electrolyte derangement. He was given a dose of Imodium, and felt comfortable returning home. He will be discharged with home care instructions and return precautions. Departure Time of Disposition: 02:57 Disposition: 01 HOME / SELF CARE / HOMELESS Impression: Primary Impression: Diarrhea Condition: Stable Discharge Instructions: Diarrhea, Adult Referrals: NO PRIMARY CARE PROVIDER (PCP) Education Educated: Patient Educated regarding: diagnosis, treatment Signature Scribe Signature: na Attestation: SHAHBAZ Hernandez MD Nov 25, 2024 02:42
[2024-11-25 02:51] VITALS: BP 130/89; PULSE 83; RESP 18; O2SAT 95
[2024-11-25] MEDS: loperamide 2mg capsule PO ONE (03:00)
== END 2024-11-25 03:08 | disposition home or self-care (01) ==
LOC: ER 00:08
DX: R19.7 Diarrhea, unspecified (principal); E11.9 Type 2 diabetes mellitus without complications; E78.00 Pure hypercholesterolemia, unspecified; I10 Essential (primary) hypertension; F12.90 Cannabis use, unspecified, uncomplicated; F15.90 Other stimulant use, unspecified, uncomplicated; Z79.899 Other long term (current) drug therapy; Z56.0 Unemployment, unspecified; Z59.00 Homelessness unspecified
CPT/HCPCS: 36415; 80053; 81001; 83690; 85025; 99283

== ENCOUNTER 2024-11-27 12:36 | Emergency (ER) | payer MEDICAID ==
[~2024-11-27] VITALS: Ht 180.3 cm; Wt 175.0 kg
[2024-11-27 12:49] VITALS: BP 124/83; PULSE 81; RESP 18; TEMP 98.7; O2SAT 99
--- NOTE | 2024-11-27 12:59 | Physician Documentation ---
History of Present Illness ~ Chief Complaint: Hand pain Stated Complaint: HAND PAIN Time Seen by MD: 12:53 Primary Medical Doctor: None HPI This is a 54-year-old male history of diabetes and peripheral neuropathy who presents with bilateral hand and foot pain described as burning progressively worsening over the last six months, patient reports that he sees [facility] and has been prescribed gabapentin for this though he is noncompliant with the medication as he believes it does not work. Tetanus within 5 years: Yes Medication Reconciliation Allergies: Coded Allergies: No Known Allergies (Unverified , 11/06/24) Scheduled Amox Tr/Potassium Clavulanate (Augmentin 875-125 Tablet), 1 TAB PO Q12H Cefuroxime Axetil (Cefuroxime), 1 TAB PO Q12H Dextromethorphan HBr (Tussin Cough), 5 ML PO Q12H Glipizide (Glipizide ER), 1 TAB PO DAILY Ibuprofen (Ibuprofen), 1 TAB PO Q8H Ibuprofen (Ibuprofen), 1 TAB PO Q8H Metformin HCl (Metformin HCl), 1 TAB PO Q12H Metformin HCl (Metformin HCl), 1 TAB PO Q12H Nirmatrelvir/Ritonavir (Paxlovid Co-Pack (Eua)), 3 EACH PO BID Past Medical History Past Medical History: High Cholesterol, Hypertension, Bronchitis, Hernia, Diabetes, *INFECTIOUS DZ*, MRSA Abscess Past Surgical History: noncontributory Alcohol Use: None Drug Use: marijuana, methamphetamine Lives In: Homeless Occupation: unemployed Review of Systems ROS Bilateral hand and foot pain as stated above in the HPI, otherwise all systems are reviewed and negative. Physical Exam Vital Signs: Temperature: 98.7, Source: Temporal, Heart Rate: 81, Respiratory Rate: 18, BP: 124/83, Pulse Oximetry: 99, Weight: 175.000 Oxygen Flow Rate: 0 Physical Exam VITALS: Reviewed and as above. GENERAL: Alert, nontoxic appearing, no apparent distress. RESPIRATORY: No increased work of breathing, no respiratory distress, speaking in full clear sentences SKIN: No erythema or swelling to hands or feet Progress Results/Orders Results/Orders Vital Signs 11/27/24 12:49 Temp 98.7 Pulse 81 Resp 18 B/P (MAP) 124/83 Pulse Ox 99 O2 Flow Rate 0 Medical Decision Making Findings This is a 54-year-old male with history of diabetes and peripheral neuropathy who is currently noncompliant with prescribed medications for peripheral neuropathy pain who presents with six months of pain to hands and feet described as burning, symptoms are consistent with neuropathy pain and as patient is noncompliant with previously prescribed gabapentin for this pain he has been advised to start taking this medication, patient offered a dose in the emergency department and offered to have dose adjusted to though he has declined as he believes the medication was not effective. There was no evidence of injury or infection to hands or feet. Patient is otherwise well-appearing with no other acute symptoms or concerns and is appropriate for outpatient follow up. Patient has been provided follow up instructions and return to care precautions. Hand Diff Dx:Considerations: Include: Abrasion, Arthritis, Gout, Herpetic humberto, Neurovascular injury, Rheumatoid arthritis, Septic, Sprain, Tenosynovitis, Cellulitis, Other (neuropathy) Departure Disposition: HOME / SELF CARE / HOMELESS Impression: Primary Impression: Hand pain Qualified Codes: M79.641 - Pain in right hand; M79.642 - Pain in left hand Additional Impression: Foot pain Qualified Codes: M79.671 - Pain in right foot; M79.672 - Pain in left foot Condition: Stable Additional Instructions: You will need to see your primary care provider or [facility] for your peripheral neuropathy, I recommend taking the previously prescribed gabapentin as this may help with your symptoms. I have offered to increase your gabapentin dose however you have declined. Please follow up with your primary care provider in the next few days. Please return to the emergency department for any new or worsening concerning symptoms. Referrals: NO PRIMARY CARE PROVIDER (PCP) Education Educated: Patient Educated regarding: diagnosis, treatment, prognosis, need for follow up Signature Scribe Signature: No scribe Attestation: The note accurately reflects work and decisions made by me.NEREIDA Mullins 21:37 BUSTER ANDERSON Nov 27, 2024 12:59
== END 2024-11-27 13:14 | disposition home or self-care (01) ==
LOC: ER 12:36
DX: M79.642 Pain in left hand (principal); M79.641 Pain in right hand; M79.672 Pain in left foot; M79.671 Pain in right foot; F12.90 Cannabis use, unspecified, uncomplicated; F15.90 Other stimulant use, unspecified, uncomplicated; E11.42 Type 2 diabetes mellitus with diabetic polyneuropathy; E78.00 Pure hypercholesterolemia, unspecified; I10 Essential (primary) hypertension; Z79.899 Other long term (current) drug therapy; Z56.0 Unemployment, unspecified; Z59.00 Homelessness unspecified
CPT/HCPCS: 99281; 99282

== ENCOUNTER 2025-01-12 09:27 | Emergency (ER) | payer MEDICAID ==
[~2025-01-12] VITALS: Ht 177.8 cm; Wt 74.8 kg
--- NOTE | 2025-01-12 10:26 | Physician Documentation ---
History of Present Illness ~ Chief Complaint: Abscess Stated Complaint: INFECTION ON FACE Time Seen by MD: 09:54 Primary Medical Doctor: None Source: patient Mode of Arrival: POV Exam Limitations: no limitations HPI 54-year-old male who is here due to a pustule on his left cheek and chin area which started a few days ago. He states he tried to squeeze the pustule on his left cheek this morning but this caused the pustule in his cheek to increase in size and become more swollen and red. No fever, chills, headache, eye pain, sore throat, chest pain, SOB. Tetanus Within 5 Years: Yes Medication Reconciliation Allergies: Coded Allergies: No Known Allergies (Unverified , 11/06/24) Scheduled Amox Tr/Potassium Clavulanate (Augmentin 875-125 Tablet), 1 TAB PO Q12H Cefuroxime Axetil (Cefuroxime), 1 TAB PO Q12H Dextromethorphan HBr (Tussin Cough), 5 ML PO Q12H Glipizide (Glipizide ER), 1 TAB PO DAILY Ibuprofen (Ibuprofen), 1 TAB PO Q8H Ibuprofen (Ibuprofen), 1 TAB PO Q8H Metformin HCl (Metformin HCl), 1 TAB PO Q12H Metformin HCl (Metformin HCl), 1 TAB PO Q12H Nirmatrelvir/Ritonavir (Paxlovid Co-Pack (Eua)), 3 EACH PO BID Past Medical History Past Medical History: High Cholesterol, Hypertension, Bronchitis, Hernia, Diabetes, *INFECTIOUS DZ*, MRSA Abscess Past Surgical History: noncontributory Alcohol Use: None Drug Use: marijuana, methamphetamine Lives In: Homeless Occupation: unemployed Review of Systems All Other Systems at this time: Reviewed and Negative Physical Exam Vital Signs: Temperature: 98.9, Source: Oral, Heart Rate: 102, Respiratory Rate: 16, BP: 155/97, Pulse Oximetry: 98, Weight: 74.800 Oxygen Flow Rate: 0 Physical Exam GENERAL: Alert, no acute distress. HEENT: NCAT, EOMI, PERRL, LEFT CHEEK ERYTHEMATOUS PUSTULE MEASURING 4MM IN SIZE, SURROUNDING ERYTHEMA. CHIN ERYTHEMATOUS PUSTULE 4MM, NO SURROUNDING ERYTHEMA. NO INDURATION. normal oropharynx, moist oral mucosa. NECK: Supple, trachea midline. NO CERVICAL LAD. CARDIAC: Regular rate and rhythm, no murmurs, rubs, or gallops. PV: Equal distal pulses. No lower extremity edema, cap refill less than 2 sec onds. RESPIRATORY: Equal breath sounds, clear to auscultation bilaterally, no respiratory distress. MUSCULOSKELETAL: Normal range of motion, nontender, no swelling. Normal gait. NEUROLOGICAL: Awake, alert, and oriented x 3. SKIN: Warm/dry, no pallor, no rash. PSYCH: Alert and appropriate. Affect congruent with mood. Speech is clear. Good eye contact. Progress Results/Orders Results/Orders Completed Orders - ALEXEI QUINTEROS Ceftriaxone Im Kit W/Lidocaine (Rocephin (01/12/25 10:05) Vital Signs 01/12/25 09:39 Temp 98.9 Pulse 102 Resp 16 B/P (MAP) 155/97 Pulse Ox 98 O2 Flow Rate 0 Medical Decision Making Differential Dx:Considerations: Include: Abscess, Bacteremia, Cellulitis, Erysipelas, Felon, Gas gangrene, Hidrademitis suppurativa, Impetigo, L ymphangitis, Osteromyelitis, Paronychia, Septicemia, Other Departure Time of Disposition: 10:24 Disposition: 01 HOME / SELF CARE / HOMELESS Impression: Primary Impression: Skin pustule Condition: Stable Discharge Instructions: General Discharge Instructions Additional Instructions: Start antibiotic f/u with [facility] in 2-3days for recheck if increasing redness, swelling Referrals: NO PRIMARY CARE PROVIDER (PCP) Prescriptions Cephalexin*Monohydrate* (Keflex*) 500 Mg Capsule 1 CAP PO QID for 10 Days, #40 CAP Prov: ALEXEI QUINTEROS 01/12/25 Sulfamethoxazole/Trimethoprim (Bactrim Ds Tablet) 800 Mg-160 Mg Tablet 1 TAB PO Q12H for 10 Days, #20 TAB Prov: ALEXEI QUINTEROS 01/12/25 Education Educated: Patient Educated regarding: diagnosis, treatment, need for follow up Signature Scribe Signature: x Attestation: ALEXEI Campos Jan 12, 2025 10:26
[2025-01-12] MEDS ORDERED: CEPH-585 PO (10:29)
[2025-01-12] MEDS ORDERED: SULF1TAB49 PO (10:29)
[2025-01-12] MEDS: CefTRIAXone 1000mg IM Kit (w/lidocaine diluent) IM ONE (10:42)
[2025-01-12 11:01] VITALS: BP 133/72; PULSE 87; RESP 16; TEMP 98.9; O2SAT 99
== END 2025-01-12 11:00 | disposition home or self-care (01) ==
LOC: ER 09:28
DX: L08.9 Local infection of the skin and subcutaneous tissue, unspecified (principal); I10 Essential (primary) hypertension; E78.00 Pure hypercholesterolemia, unspecified; E11.9 Type 2 diabetes mellitus without complications; F12.90 Cannabis use, unspecified, uncomplicated; F15.90 Other stimulant use, unspecified, uncomplicated; Z79.899 Other long term (current) drug therapy; Z59.00 Homelessness unspecified; Z56.0 Unemployment, unspecified
CPT/HCPCS: 96372; 99283; J0696

== ENCOUNTER 2025-01-24 08:51 | Emergency (ER) | payer MEDICAID ==
[~2025-01-24] VITALS: Ht 177.8 cm; Wt 73.1 kg
[~2025-01-24 08:51] MED LIST changes: -IBUP-1985 PO; +IBUP600T52 PO
[2025-01-24 08:58] VITALS: BP 141/87; PULSE 75; O2SAT 99
--- NOTE | 2025-01-24 09:48 | Physician Documentation ---
History of Present Illness ~ Chief Complaint: Shoulder pain Stated Complaint: ARM PAIN AND MED CLEARANCE Time Seen by MD: 09:27 Primary Medical Doctor: None HPI 54-year-old male presents to the ED complaining of chronic left arm pain. He states he also wants me medically cleared for rehab secondary to ongoing methamphetamine use. Day of Onset: Jan 24, 2025 Tetanus within 5 years?: Yes Medication Reconciliation Allergies: Coded Allergies: No Known Allergies (Unverified , 01/24/25) Scheduled Amox Tr/Potassium Clavulanate (Augmentin 875-125 Tablet), 1 TAB PO Q12H Cefuroxime Axetil (Cefuroxime), 1 TAB PO Q12H Dextromethorphan HBr (Tussin Cough), 5 ML PO Q12H Glipizide (Glipizide ER), 1 TAB PO DAILY Ibuprofen (Ibuprofen), 1 TAB PO Q8H Ibuprofen (Ibuprofen), 1 TAB PO Q8H Metformin HCl (Metformin HCl), 1 TAB PO Q12H Metformin HCl (Metformin HCl), 1 TAB PO Q12H Nirmatrelvir/Ritonavir (Paxlovid Co-Pack (Eua)), 3 EACH PO BID Discontinued Medications Cephalexin*Monohydrate* (Keflex*), 1 CAP PO QID Discontinued Reason: Auto Discontinued Sulfamethoxazole/Trimethoprim (Bactrim Ds Tablet), 1 TAB PO Q12H Discontinued Reason: Auto Discontinued Past Medical History Past Medical History: High Cholesterol, Hypertension, Bronchitis, Hernia, Diabetes, *INFECTIOUS DZ*, MRSA Abscess Past Surgical History: noncontributory Alcohol Use: None Drug Use: marijuana, methamphetamine Lives In: Homeless Occupation: unemployed Physical Exam Vital Signs: Temperature: 98.2, Source: Temporal, Heart Rate: 75, Respiratory Rate: 16, BP: 141/87, Pulse Oximetry: 99, Weight: 73.100 Oxygen Flow Rate: 0 Physical Exam General: Alert, no apparent distress. Respiratory: Lungs clear, no respiratory distress. Cardiovascular: Regular rate and rhythm, no murmurs. Gastrointestinal: Soft, nontender, nondistended. Bowels sounds present. Extremities: Normal range of motion, no deformity. Positive drop-arm test left shoulder Neurologic: Oriented x4. Psychiatric: Normal mood and affect. Skin: Normal color, warm and dry. No edema, no ecchymosis. Progress Results/Orders Results/Orders Completed Orders - RAYSHAWN AUSTIN NP Ketorolac Trometh 15mg/Ml Vial (Toradol (01/24/25 09:45) Medications Received in ER Medications (Trade) Dose Ordered Sig/Mely Route PRN Reason Start Time Stop Time Status Last Admin Dose Admin (Toradol injection) 15 mg ONCE ONCE IM 01/24/25 09:45 01/24/25 09:46 DC 01/24/25 09:53 15 MG Vital Signs 01/24/25 01/24/25 01/24/25 08:58 09:53 10:55 Temp 98.2 98.2 Pulse 75 Resp 16 16 B/P (MAP) 141/87 Pulse Ox 99 O2 Flow Rate 0 Medical Decision Making Findings Advised the patient to take ibuprofen for his left shoulder and I will medically clear him for methamphetamine inpatient rehab Differential Dx:Considerations: Include: AC separation, Adhesive capsulitis, arthritis, Bicipital tendonitis, Calcific tendonitis, Cervical disc disease, Contusion, Dislocation, Fracture: Humerus, Fracture: Scapula, Fracture: Clavicle, Gallbladder Disease, Hematoma, Impingement syndrome, Myocardial infarction, Neurovascular Injury, Rotator cuff injury, SC dislocation, Sprain, Subacromial bursitis, other Departure Disposition: 01 HOME / SELF CARE / HOMELESS Impression: Primary Impression: Shoulder pain Additional Impression: General medical exam Condition: Stable Discharge Instructions: Methamphetamines Use Disorder Additional Instructions: You were medically cleared for inpatient rehabilitation for methamphetamine abuse Referrals: NO PRIMARY CARE PROVIDER (PCP) Signature Scribe Signature: f Attestation: Scribed for Rayshawn Austin Microwave Radio Technician by Rayshawn Spicer NP . 01/24/25 17:29 RAYSHAWN AUSTIN NP Jan 24, 2025 09:47
[2025-01-24 09:53] VITALS: RESP 16
[2025-01-24] MEDS: ketorolac trometh 15mg/ml vial 15 MG/ML ML IM ONE (09:53)
[2025-01-24 10:55] VITALS: TEMP 98.2
== END 2025-01-24 11:00 | disposition home or self-care (01) ==
LOC: ER 08:52
DX: M25.512 Pain in left shoulder (principal); E78.00 Pure hypercholesterolemia, unspecified; E11.9 Type 2 diabetes mellitus without complications; I10 Essential (primary) hypertension; F12.90 Cannabis use, unspecified, uncomplicated; F15.90 Other stimulant use, unspecified, uncomplicated; Z56.0 Unemployment, unspecified; Z59.00 Homelessness unspecified; Z79.899 Other long term (current) drug therapy; Z79.84 Long term (current) use of oral hypoglycemic drugs
CPT/HCPCS: 96372; 99283; J1885

== ENCOUNTER 2025-02-08 08:32 | Inpatient (IN) | payer MEDICAID ==
[~2025-02-08] VITALS: Ht 180.3 cm; Wt 72.7 kg
--- NOTE | 2025-02-08 08:52 | Physician Documentation ---
History of Present Illness Chief Complaint: Abdominal Pain Stated Complaint: ABD PAIN Primary Medical Doctor: None HPI 54 yr old male with hx of methamphetamine and marijuana abuse, diabetes and neuropathy presents to ER reporting about a day of N/V no diarrhea. Denies fevers, chills. Pain is generalized to the entire abd. Medication Reconciliation Allergies: Coded Allergies: No Known Allergies (Unverified , 01/24/25) Scheduled Amox Tr/Potassium Clavulanate (Augmentin 875-125 Tablet), 1 TAB PO Q12H Cefuroxime Axetil (Cefuroxime), 1 TAB PO Q12H Dextromethorphan HBr (Tussin Cough), 5 ML PO Q12H Glipizide (Glipizide ER), 1 TAB PO DAILY Ibuprofen (Ibuprofen), 1 TAB PO Q8H Ibuprofen (Ibuprofen), 1 TAB PO Q8H Metformin HCl (Metformin HCl), 1 TAB PO Q12H Metformin HCl (Metformin HCl), 1 TAB PO Q12H Nirmatrelvir/Ritonavir (Paxlovid Co-Pack (Eua)), 3 EACH PO BID Past Medical History Past Medical History: High Cholesterol, Hypertension, Bronchitis, Hernia, Diabetes, *INFECTIOUS DZ*, MRSA Abscess Past Surgical History: noncontributory Alcohol Use: None Drug Use: marijuana, methamphetamine Lives In: Homeless Occupation: unemployed Review of Systems ROS As stated above in the HPI, otherwise all systems are reviewed and negative. Physical Exam Vital Signs: Temperature: 97.4, Source: Temporal, Heart Rate: 74, Respiratory Rate: 18, BP: 167/104, Pulse Oximetry: 98, Weight: 72.700 Oxygen Flow Rate: 0 Physical Exam General: Alert, moderate distress. Neck: Full range of motion. Respiratory: Lungs clear, no respiratory distress. Chest: No accessory muscle use. Cardiovascular: Regular rate and rhythm, no murmurs. Gastrointestinal: Soft,diffusely TTP, no deformity. Neurologic: Oriented x4. Psychiatric: Normal mood and affect. Skin: Normal color, warm and dry. No edema, no ecchymosis. Progress Progress Note 1415: Patient now in ED room, lying down, and able to be more thoroughly examined. Found firm right inguinal hernia that is non-reducible. Case discussed with YUKI Hanna. Contrasted CT abd/pelvis ordered. 1755: Received phone call from radiologist Dr. Hidalgo who reports that patient has SBO with transition point in right inguinal hernia. 1849: Two attempts to reduce hernia with Dr. Ibanez at bedside after administration of hydromorphone. Contacted Dr. Marie who agrees to consult on patient, asks that he be kept NPO. 1852: End of my shift transition of care to EDDE Marcelle. Results/Orders Results/Orders Orders - RHINA CARCAMO OPEN TENTER OPERATOR Cbc/Diff (02/08/25 08:38) Lipase (02/08/25 08:38) Urinalysis, Cult If Indicated (02/08/25 08:38) CMP (02/08/25 08:38) Ondansetron Disint. Tablet (Zofran Odt T (02/08/25 08:50) Drug Screen, Urine (02/08/25 08:49) Vital Signs 02/08/25 08:47 Temp 97.4 Pulse 74 Resp 18 B/P (MAP) 167/104 Pulse Ox 98 O2 Flow Rate 0 EKG/XRAY/CT/US/VASC/MRI CT : Impression [facility] [address] [place] [address] CAT SCAN Patient: KATH BERRY Medical Record: [id number] [facility] : 1970, Age: 54 Sex: Male Location: ER Patient Status: REG ER Service Date/Time: 02/08/251726 Ordering Physician: RHINA CARCAMO OPEN TENTER OPERATOR Exam: CT ABDOMEN PELVIS Exam: CT CT ABDOMEN PELVIS W/ IV ORAL CONTRAST History: right inguinal hernia Comparison Study: None TECHNIQUE: A digital project development engineer image was obtained. During the uneventful, intravenous administration of contrast material, multislice data acquisition was obtained through the abdomen and pelvis. The data set was subsequently reconstructed into axial images. Images reviewed on a wrist examination is an examination of axial and multiplanar reformations using a variety of window levels and settings. RADIATION DOSE: DLP 836.84 mGy.cm; CTDI vol 14.44 mGy. Findings: Lungs: The lung bases are clear. Heart: No cardiomegaly or pericardial effusion. Liver: Unremarkable. Gallbladder: Unremarkable. Spleen: Unremarkable Pancreas: Unremarkable Adrenals: Unremarkable Kidneys: Left renal cysts. GI tract: Dilated small bowel with air-fluid levels. Transition point appears to be at the right inguinal hernia which contains a small loop of small bowel. No evidence of incarceration. : Right hydrocele. Vasculature: Unremarkable Lymphadenopathy: Absent Peritoneum: No ascites or pneumoperitoneum Musculoskeletal: Mild to moderate multilevel degenerative changes of the thoracolumbar spine. Soft tissues: Unremarkable Impression: 1. Small-bowel obstruction with transition point at the right inguinal hernia. 2. No evidence of incarceration or perforation. 3. Right hydrocele. Critical Result: Bowel obstruction Findings discussed with RHINA CARCAMO at 02/08/2025 05:57 PM, and acknowledged receipt and understanding of the findings. Electronically Signed by:YOANNA HIDALGO DO Date & Time: 02/08/251756 Dictated by: YOANNA HIDALGO DO Dictation date and time: 02/08/251756 Primary Care Provider: NO PRIMARY CARE PROVIDER cc: RHINA CARCAMO NP ~ Medical Decision Making Findings Patient is a 54-year-old man that was also evaluated by myself by request of Rhina Carcamo our nurse practitioner. Patient has a right inguinal hernia that can not be completely reduced. Patient has evidence of small-bowel obstruction on CT scan. Dr. Hutchison aware and taking the patient to the OR. The hospitalist was paged but never spoke with me. They are aware patient will need to be evaluated by them/hospitalist once out of the OR. Departure Time of Disposition: 18:30 Disposition: ADMITTED INPATIENT Admitted to Inpatient Unit: to hospitalist Admission Level of Care: Med/Surg with Tele Impression: Primary Impression: Incarcerated inguinal hernia Condition: Fair Education Educated: Patient Educated regarding: diagnosis, treatment Signature Scribe Signature: x Attestation: The note accurately reflects work and decisions made by me.Rhina Spicer NP 02/08/25 08:51 RHINA CARCAMO NP Feb 08, 2025 08:52 NOEL IBANEZ MD Feb 08, 2025 20:03
[2025-02-08 09:23] LABS: MEAN PLATELET VOLUME 8.7 FL (7.4-10.4); RED CELL DISTRIBUTION WIDTH 13.9 % (11.5-14.5)
[2025-02-08 09:35] LABS: CREATININE 1.10 MG/DL (0.60-1.10); TOTAL CARBON DIOXIDE 28.7 MMOL/L (24-32); eCRCL 77 ML/MIN; eGFR 69 ML/MIN
[2025-02-08] MEDS: ondansetron 4mg rapidly disintigrating tab PO ONE ×2 (09:59→10:05)
[2025-02-08] MEDS: morphine 4 MG/ML inj SYRINge IV ONE (14:19)
[2025-02-08] MEDS: normal saline 1000ml 1,000 ML IV ONE (14:22)
[2025-02-08] MEDS: insulin regular, human 10 units/0.1 ml syringe SQ ONE (14:31)
[2025-02-08] MEDS: IOHEXOL 12MG/ML oral solution 500 ML BOTTLE PO ONE (15:54)
[2025-02-08] MEDS: ketorolac trometh 15mg/ml vial 15 MG/ML ML IV ONE (15:54)
[2025-02-08] MEDS ORDERED: iohexol 300mg/ml 100ml inj. ONE (17:07)
--- NOTE | 2025-02-08 18:00 | RADIOLOGY REPORT ---
Exam: CT CT ABDOMEN PELVIS W/ IV ORAL CONTRAST History: right inguinal hernia Comparison Study: None TECHNIQUE: A digital validation leader image was obtained. During the uneventful, intravenous administration of c ontrast material, multislice data acquisition was obtained through the abdomen and pelvis. The data s et was subsequently reconstructed into axial images. Images reviewed on a wrist examination is an exa mination of axial and multiplanar reformations using a variety of window levels and settings. RADIATION DOSE: DLP 836.84 mGy.cm; CTDI vol 14.44 mGy. Findings: Lungs: The lung bases are clear. Heart: No cardiomegaly or pericardial effusion. Liver: Unremarkable. Gallbladder: Unremarkable. Spleen: Unremarkable Pancreas: Unremarkable Adrenals: Unremarkable Kidneys: Left renal cysts. GI tract: Dilated small bowel with air-fluid levels. Transition point appears to be at the right ingu inal hernia which contains a small loop of small bowel. No evidence of incarceration. : Right hydrocele. Vasculature: Unremarkable Lymphadenopathy: Absent Peritoneum: No ascites or pneumoperitoneum Musculoskeletal: Mild to moderate multilevel degenerative changes of the thoracolumbar spine. Soft tissues: Unremarkable Impression: 1. Small-bowel obstruction with transition point at the right inguinal hernia. 2. No evidence of incarceration or perforation. 3. Right hydrocele. Critical Result: Bowel obstruction Findings discussed with ANNA CARCAMO at 02/08/2025 05:57 PM, and acknowledged receipt and understan ding of the findings.
[2025-02-08] MEDS: midazolam 1 mg/ML 2ml injection IV ONE (18:30)
[2025-02-08 19:36] LABS: CREATININE 1.08 MG/DL (0.60-1.10); TOTAL CARBON DIOXIDE 29.1 MMOL/L (24-32); eCRCL 79 ML/MIN; eGFR 71 ML/MIN
[2025-02-08] MEDS ORDERED: BUPIVAcaine/PF 2.5mg/ml (0.25%) 10ml vial ONE (19:48)
[2025-02-08] MEDS ORDERED: LIDOcaine 1% 30ml preserv. free vial ONE (19:48)
--- NOTE | 2025-02-08 20:29 | PROGRESS NOTE ---
Progress Note ID Providers to CC ~ Progress Note Progress Note: pt seen and examined-unable to provide consent-surgery in am ASHLI FITCH MD Feb 08, 2025 20:29
[2025-02-08] MEDS ORDERED: magnesium sulf-water 2g/50mL 50 ML IV PRN (20:40)
[2025-02-08] MEDS ORDERED: magnesium Cl slow-release 64mg tablet PO PRN (20:40)
[2025-02-08] MEDS ORDERED: magnesium sulf-water 4G/100mL 100 ML IV PRN (20:40)
[2025-02-08] MEDS ORDERED: potassium Cl 40MEQ/1/2NS 520ml 520 ML IV PRN (20:40)
[2025-02-08] MEDS ORDERED: HYDROcodone/acetaminophen 5mg/325mg tablet PO PRN (20:40)
[2025-02-08] MEDS ORDERED: potassium Cl 20 mEq SR tablet PO PRN ×2 (20:40)
[2025-02-08] MEDS ORDERED: magnesium hydroxide 30ml (MOM) UD suspension PO PRN (20:40)
--- NOTE | 2025-02-08 21:07 | HISTORY AND PHYSICAL-Residence ---
History & Physical Providers to CC Resident Creating Document: BIANKA KNOX RES ~ History of Present Illness Primary Medical Doctor: None Reason for Admit\Complaint: abdominal pain History of Present Illness 54-year-old male with past medical history of hypertension, diabetes, meth, cannabinoid abuse presented to the ED with complaints of abdominal pain. Patient was given Dilaudid 1 mg in the ED for pain. He instantly became drowsy. CT scan of the abdomen was done and showed Small-bowel obstruction with transition point at the right inguinal hernia, No evidence of incarceration or perforation, Right hydrocele. Patient was consulted by surgeon who examined the patient and decided to take the patient to the OR tomorrow morning as the patient was drowsy,not awake and was not able to give consent. Patient was shifted to the surgical floor, is sleepy, drowsy, was not responding to commands, hence was not able to obtain proper history. Allergies: Coded Allergies: No Known Allergies (Unverified , 01/24/25) Home Medications Home Medications Active Glipizide ER (Glipizide) 10 Mg Tab.er.24 1 Tab PO DAILY 30 Days Metformin HCl 1,000 Mg Tablet 1 Tab PO Q12H 30 Days Ibuprofen 600 Mg Tablet 1 Tab PO Q8H 10 Days Ibuprofen 600 Mg Tablet 1 Tab PO Q8H 10 Days Tussin Cough (Dextromethorphan HBr) 15 Mg/5 Ml Liquid 5 Ml PO Q12H 10 Days Cefuroxime (Cefuroxime Axetil) 500 Mg Tablet 1 Tab PO Q12H 10 Days Metformin HCl 1,000 Mg Tablet 1 Tab PO Q12H 30 Days Augmentin 875-125 Tablet (Amoxicillin/Clavulanate Potassium) 1 Each Tablet 1 Tab PO Q12H 7 Days Paxlovid Co-Pack (Eua) (Nirmatrelvir/Ritonavir) 1 Each Tablet 3 Each PO BID 5 Days Take 3 tablets--300mg of nirmatrelvir with ritonavir 100mg--(administer together) twice daily for 5 days. Start as soon as possible. Past Medical History Past Medical History The previous records show patient has history of Hypertension, diabetes, meth abuse, bronchitis, hernia, MRSA abscess Past Surgical History Surgical History Comment Not contributory Past Social History Social History Comment Drug abuse-meth, marijuana Homeless Currently unemployed Alcohol Use: None Drug Use: Marijuana, Methamphetamine Lives In: Homeless Occupation: unemployed ROS ROS Patient was drowsy sleepy not responding to commands. Was unable to take history Exam Vitals: Vital Signs Date Time Temp Pulse Resp B/P (MAP) Pulse Ox O2 Delivery O2 Flow Rate FiO2 02/08/25 19:15 65 19 91/58 (69) 99 02/08/25 18:47 0 02/08/25 08:47 97.4 General: General: Drowsy, sleeping, not responding to commands Respiratory: Normal bilateral vesicular breath sounds heard, not in acute distress , patient's snoring Chest: No accessory muscle use. Cardiovascular: Regular rate and rhythm, no murmurs. Gastrointestinal: mild bowel sounds heard , unable to elicit tenderness , no guarding, rigidity, Skin: Normal color, warm and dry. No edema, no ecchymosis. Neurological-patient not awake, could not examine. Extremities- no edema, peripheral pulses felt Diagnostic Data Last Recorded Lab Results: 02/08/25 0906 02/08/25 1903 Advance Care Planning Advanced Care plannin - 30 Minutes (Patient was sleepy drowsy not able to answer, so put him on full code) Additional Plan [id number]-old male presented to the ED with chief complaints of abdominal pain. Was given pain medication, and currently the patient is drowsy and sleepy, patient seen and examined by , currently admitting the patient for medical management until surgery planned for tomorrow. Small-bowel obstruction No evidence of incarceration or perforation. Non-reducible Right inguinal hernia- Patient's vitals stable procal, lactic acid normal WBC count normal- 10.5 CT scan abdomen shows small bowel obstruction with no evidence of perforation Patient on fluids NS 100mls/hr Patient started on antibiotics-cefazolin 2gm Patient on Protonix. NPO from now Dr. Hutchison examined the patient and planning to take him for surgery tomorrow morning Uncontrolled diabetes mellitus- HB A1c 11.7. Current blood glucose-422, trending down Patient on hyperglycemia hypoglycemia protocol Insulin lantus-14U Meth abuse- Urine toxicology ordered. Substance use navigator consulted Mild hyponatremia- Na-131 We will continue to monitor Hypertension- Blood pressure normal Patient not on any home medications. Code Status: Full code DVT prophylaxis:No Analgesia/sedation: Morphine Line/tube: PIV GI prophylaxis:Protonix Nutrition:NPO Physical therapy: Yes Prognosis: Guarded Bianka Knox PGY-1 Date of Service: Feb 09, 2025 Billing Provider: NINI GARCIA MD,BIANKA, RES Feb 08, 2025 21:07
[2025-02-08] MEDS: normal saline 1000ml 1,000 ML IV SCH (21:54)
[2025-02-08 22:30] VITALS: BP 105/67; PULSE 66; RESP 16; TEMP 98.2; O2SAT 93
[2025-02-08 22:47] LABS: INR 1.0 INR
[2025-02-09] VITALS (26 sets, daily range): BP systolic 100–189; BP diastolic 50–124; PULSE 66–91; RESP 11–23; TEMP 98–98.5; O2SAT 92–100
[2025-02-09] MEDS ORDERED: DEXTROSE 15 GM of carb/4 tabs (each vial/BOTTLE has 4 tablets) PO PRN ×2 (04:40)
[2025-02-09] MEDS ORDERED: glucagon, human recombinant 1mg kit SUBCUT PRN (04:40)
[2025-02-09] MEDS ORDERED: dextrose 50%-water 50ml dispensing syringe IV PRN ×2 (04:40)
[2025-02-09 04:51] LABS: MEAN PLATELET VOLUME 8.6 FL (7.4-10.4); RED CELL DISTRIBUTION WIDTH 14.1 % (11.5-14.5)
[2025-02-09] MEDS: ceFAZolin 2gm/dext,iso 50mL 50 ML IV ONE (05:00)
[2025-02-09 05:38] LABS: CREATININE 1.03 MG/DL (0.60-1.10); LDL CHOLESTEROL 101 MG/DL (50-100); TOTAL CARBON DIOXIDE 27.6 MMOL/L (24-32); eCRCL 82 ML/MIN; eGFR 75 ML/MIN
[2025-02-09 05:52] LABS: CHOL/HDL RATIO 4.2 (0.00-4.99)
--- NOTE | 2025-02-09 06:26 | ELECTROCARDIOGRAPH REPORT ---
[facility] Test Date: 2025-02-09 Test Time: 03:21:34 Pat Name: KATH BERRY Department: Room: [place] [address] [address] Gender: M Brown Sourer: AME : 1970 Requested By: NINI GARCIA Order Number: [id number] Reading MD: Dr. JAVY Palacios Measurements Intervals [place] Rate: 81 P: -13 OK: 166 QRS: 19 QRSD: 92 T: 33 QT: 378 QTc: 439 Interpretive Statements Sinus rhythm Anteroseptal infarct , age undetermined Electronically Signed On 02-09-2025 17:02:[address] JAVY Palacios Please click the below link to view image of tracing.
[2025-02-09] MEDS: K and/or MAG REPLACEMENT MC SCH (08:00)
[2025-02-09] MEDS: docusate sod 100mg capsule PO SCH (08:00)
[2025-02-09] MEDS: INSULIN LISPRO 100 UNIT/ML INSULN.PEN MULTI-DOSE SQ SCH (08:59)
--- NOTE | 2025-02-09 10:55 | PROGRESS NOTE ---
Progress Note ID Providers to CC ~ Progress Note Progress Note: discussed procedure including risks/benefits/alternatives ASHLI FITCH MD Feb 09, 2025 10:55
[2025-02-09] MEDS ORDERED: midazolam 1 mg/ML 2ml injection ONE (11:17)
[2025-02-09] MEDS ORDERED: fentaNYL /PF 50mcg/ml 5ml ampule ONE (11:18)
[2025-02-09] MEDS ORDERED: propofol inj 20 ML IV ONE (11:18)
[2025-02-09] MEDS ORDERED: rocuronium 10mg/ml inj IV ONE ×2 (11:18→12:50)
[2025-02-09] MEDS ORDERED: ondansetron/PF 4mg/2ml inj IV PRN (12:00)
[2025-02-09] MEDS ORDERED: hydrALAZINE 20mg/ml inj. IV PRN (12:00)
[2025-02-09] MEDS: ringers solution, lacted 1,000 ML IV SCH (12:00)
[2025-02-09] MEDS ORDERED: HYDROmorphone/PF 0.2 MG/ML SYRINGE IV PRN (12:00)
[2025-02-09] MEDS ORDERED: BUPIVAcaine 2.5mg/ml inj 50ml vial (contains preservative) ONE (12:35)
[2025-02-09] MEDS ORDERED: acetaminophen 1,000mg/100ml IV 100 ML IV ONE (12:48)
[2025-02-09] MEDS ORDERED: glycopyrrolate 0.2mg/ml inj ONE (12:50)
[2025-02-09] MEDS ORDERED: ondansetron/PF 4mg/2ml inj ONE (12:51)
--- NOTE | 2025-02-09 12:56 | OPERATIVE REPORT ---
Operative Report Providers to CC ~ Date of Procedure: Feb 09, 2025 Pre-Operative Diagnosis: INCARCERATED RIH Post-Operative Diagnosis RIH WITH GANGRENOUS SMALL BOWEL Procedure Performed OPEN REPAIR RIH/EX LAP WITH SMALL BOWEL RESECTION Surgeon: CONSTANTINE LAYTON Anesthesiologist: Shreyas De La Paz Type of Anesthesia: General Findings: GANGRENOUS SMALL BOWEL/STRANGULATED RIH Estimated Blood Loss: MIN Specimen Removed: SMALL BOWEL ASHLI FITCH MD Feb 09, 2025 12:56
[2025-02-09] MEDS: morphine 4 MG/ML inj SYRINge IV PRN (13:09)
[2025-02-09] MEDS ORDERED: PCA WASTE DOCUMENTATION 1 MG ML MC SCH (13:10)
[2025-02-09] MEDS ORDERED: HYDROmorphone inj. 0.5 MG/0.5 ML DISP.SYRIN IV PRN (13:10)
[2025-02-09] MEDS ORDERED: HYDROmorph/NS 0.2 mg/ml PCA 100 ML IV SCH (13:10)
[2025-02-09] MEDS: HYDROmorphone/PF 0.2 MG/ML SYRINGE IV PRN (13:20)
[2025-02-09] MEDS: acetaminophen 1,000mg/100ml IV 100 ML IV PRN (13:29)
[2025-02-09] MEDS: ketorolac trometh 30MG/ML vial 30 MG/ML VIAL IV PRN (13:30)
[2025-02-09] MEDS: labetalol 20mg/4ml (5mg/ml) syringe IV PRN (13:34)
[2025-02-09] MEDS ORDERED: piperacillin/tazo 3.375gm/50ml 50 ML IV SCH ×2 (16:00→20:12)
--- NOTE | 2025-02-09 17:46 | PROGRESS NOTE ---
Daily Progress Note Providers to CC ~ Antibiotic Timeout Antibiotic Ordered?: Yes Subjective None, patient snoring but wakes up to his name , allowed exam, has no complaints, Objective Vital Signs Date Time Temp Pulse Resp B/P (MAP) Pulse Ox O2 Delivery O2 Flow Rate FiO2 02/09/25 14:30 77 17 124/83 (97) 95 Room Air 0.0 02/09/25 12:59 97.5 Result Diagram: 02/09/25 0434 02/09/25 0434 Opens eyes to his name, HEENT normocephalic atraumatic extraocular movements are intact Neck supple, no JVD Chest: Clear to auscultation, no wheezes crackles rhonchi Heart rate regular rate rhythm, no murmur or gallop rub Abdomen: Tender as expected. Large bandage from his recent surgery noted. No bowel sounds audible Extremities no cyanosis clubbing or edema Neuro exam is nonfocal. Coagulation Studies Laboratory Tests Test 02/08/25 22:26 Prothrombin Time 10.2 SECONDS (9.0-12.0) INR International Normalized Ratio 1.0 INR Coagulation Comments Other Results Medications reviewed Problem\Assessment\Plan 54 years old male with a history of hypertension, diabetes mellitus, meth use, cannabis abuse, presented to the ER for evaluation of abdominal pain. 1. Incarcerated right inguinal hernia with small-bowel obstruction: Patient underwent open repair of the right inguinal hernia using the senior technique and laparotomy with small-bowel resection by Dr. Hutchison. Patient is doing well postoperatively. 2. NIDDM: Patient is NPO for now. Diet per surgery. Hyper/hypoglycemia protocol. Hold metformin and glipizide 3. Code status: Full code Date of Service: Feb 09, 2025 Billing Provider: GEORGETTE ALSTON MD Common Visit Codes: [id number] INP/OBS CARE(HIGH) GEORGETTE ALSTON MD Feb 09, 2025 17:46
[2025-02-09] MEDS: piperacillin/tazo 3.375gm/50ml 50 ML IV SCH (20:40)
[2025-02-09] MEDS: insulin glargine (Lantus) pen - multi-dose SQ SCH (20:54)
[2025-02-10] VITALS (7 sets, daily range): BP systolic 119–148; BP diastolic 69–96; PULSE 74–86; RESP 22–24; TEMP 98.2–98.8; O2SAT 96–98
[2025-02-10 06:01] LABS: MEAN PLATELET VOLUME 8.7 FL (7.4-10.4); RED CELL DISTRIBUTION WIDTH 14.3 % (11.5-14.5)
[2025-02-10 06:20] LABS: CREATININE 0.92 MG/DL (0.60-1.10); TOTAL CARBON DIOXIDE 28.1 MMOL/L (24-32); eCRCL 92 ML/MIN; eGFR 85 ML/MIN
[2025-02-10] MEDS: HYDROmorphone inj. 0.5 MG/0.5 ML DISP.SYRIN IV PRN (06:50)
--- NOTE | 2025-02-10 10:15 | CONSULTATION ---
DATE OF CONSULTATION: 02/08/2025 DICTATING PHYSICIAN: Frantz Hutchison MD REASON FOR CONSULTATION: Evaluation for abdominal pain and right inguinal hernia. HISTORY OF PRESENT ILLNESS: The patient is a 54-year-old male with multiple medical problems as well as meth use, including complaints of abdominal discomfort. Workup revealed a small bowel obstruction with an incarcerated right inguinal hernia. The patient was sedated, attempts to unsuccessful. Surgical evaluation now requested. The patient was examined and found to have an incarcerated hernia, but the patient additional history, could not provide consent for repair. The patient was seen in the morning of 02/09 for further evaluation and possible surgical intervention. On further questioning, the patient complains of some right groin pain. He has had previous hernia repair many years ago. No NG tube is in place. PAST MEDICAL HISTORY: Notable for hypertension, diabetes, meth use, bronchitis, MRSA. PAST SURGICAL HISTORY: History of hernia repair. HOME MEDICATIONS: Include glipizide, metformin, Motrin, cefuroxime, metformin, Augmentin, Paxlovid. ALLERGIES: None. SOCIAL HISTORY: Notable for meth use, marijuana use. PHYSICAL EXAMINATION: GENERAL: Well-nourished male, in no acute distress. VITAL SIGNS: Unremarkable. HEART: Regular rate and rhythm. LUNGS: Clear to auscultation. ABDOMEN: Nondistended. There is a incarcerated right inguinal hernia, tender to palpation. LABORATORY DATA: Include a WBC of 16, hematocrit of 49, platelet count 279. Chemistries include a BUN and creatinine of 6 and 1.03, lactate on 02/08 was 1.7. IMAGING STUDIES: CAT scan reveals an incarcerated right inguinal hernia with small bowel. IMPRESSION: * Incarcerated right inguinal hernia. * History of diabetes. * History of hypertension. * History of meth use. * History of marijuana use. PLAN: To OR for repair of incarcerated right inguinal hernia, possible laparotomy. Frantz Hutchison MD TID: [id number] RECEIPT: [id number] KB/MAURICIO/TOBYA
--- NOTE | 2025-02-10 10:22 | OPERATIVE REPORT ---
DATE OF SURGERY: 02/09/2025 DICTATING PHYSICIAN: Frantz Hutchison MD PREOPERATIVE DIAGNOSIS: Incarcerated right inguinal hernia. POSTOPERATIVE DIAGNOSES: Incarcerated right inguinal hernia with small bowel obstruction. PROCEDURES PERFORMED: * Open repair of right inguinal hernia using the Bassini technique. * Laparotomy with small bowel resection. SURGEON: Frantz Hutchison MD GUEST SERVICES AMBASSADOR: None. ANESTHESIA: General/Dr. De La Paz. DRAINS: None. INDICATIONS FOR OPERATION: A 54-year-old male with a history of meth use, presented to the ER with complaints of abdominal pain on 02/08. He was given a large amount of sedation, so consent could not be obtained for surgical intervention. The patient was reevaluated on the morning of 02/09, consent obtained and the patient was taken to surgery for repair of right inguinal hernia with possible small bowel resection. INTRAOPERATIVE FINDINGS: The patient had a gangrenous small bowel and a strangulated inguinal hernia. DESCRIPTION OF PROCEDURE: The patient was placed supine on the operating table. After induction of general anesthesia and placement of an endotracheal tube, the abdomen was prepped and draped. An oblique incision was then made in the right groin and was extended down through subcutaneous fat and fascia. Sharply identified and incised. The external oblique was incised and the external ring was opened. Cord was subsequently explored. identified. The patient had a sac containing edematous small bowel. Cord was mobilized from the sac. The sac was then opened and a gangrenous small bowel was identified within the sac. The external and internal rings were opened for a short distance to provide reduction of the small bowel into the abdominal cavity. A midline incision was subsequently made. The small bowel was identified. Small bowel noted to be gangrenous. A short segment of small bowel was resected by placing the LAZARA stapler proximally and distally. then used to divide the mesentery. A ondf-jj-[id number] anastomosis was constructed using the LAZARA-75 and the internal opening was closed with a TA 60. The mesenteric defect was closed. The abdomen was irrigated with a large amount of antibiotic-containing solution. The rectal fascia was closed with a running suture of looped PDS and the skin was closed with clips. placed. Attention was then turned to the right inguinal hernia. The sac was subsequently closed using an interrupted suture of 2-0 silk. The sac was reduced into the abdominal cavity. Attention was turned to the repair of the defect in the inguinal canal floor. Given the gangrenous bowel, , mesh was not used. The conjoined tendon was subsequently mobilized by making a relaxing incision. The conjoined tendon was attached with the Bassini to the inguinal ligament using interrupted sutures of 0 silk. Upon completion of the repair, one fingertip could be into the internal ring. The external oblique was reapproximated with sutures of 3-0 Vicryl. Sonu fascia was closed with a suture of 2-0 Vicryl. The skin was closed with clips. Dressings were applied, and the patient was transferred to recovery in stable condition. Frantz Hutchison MD TID: [id number] RECEIPT: [id number] DAVIN/MAURICIO/MICHAEL
--- NOTE | 2025-02-10 12:48 | PROGRESS NOTE ---
Progress Note ID Providers to CC ~ Progress Note Progress Note: pain improving/vss/abd-dressing intact a/p 1. s/p repair yovani rih-doing well/clears ASHLI FITCH MD Feb 10, 2025 12:48
--- NOTE | 2025-02-10 16:27 | PROGRESS NOTE ---
Daily Progress Note Providers to CC ~ Antibiotic Timeout Antibiotic Ordered?: Yes Subjective None. Objective Vital Signs Date Time Temp Pulse Resp B/P (MAP) Pulse Ox O2 Delivery O2 Flow Rate FiO2 02/10/25 12:02 14 02/10/25 08:00 96 Room Air 02/10/25 06:00 98.5 76 120/69 (86) 02/09/25 14:30 0.0 Result Diagram: 02/10/25 0519 02/10/25 0519 Opens eyes to his name, sleeping. HEENT normocephalic atraumatic extraocular movements are intact Neck supple, no JVD Chest: Clear to auscultation, no wheezes crackles rhonchi Heart rate regular rate rhythm, no murmur or gallop rub Abdomen: Tender as expected. Large bandage from his recent surgery noted. Bowel sounds outside the bandage are audible. Extremities no cyanosis clubbing or edema Neuro exam is nonfocal. Coagulation Studies Laboratory Tests Test 02/08/25 22:26 Prothrombin Time 10.2 SECONDS (9.0-12.0) INR International Normalized Ratio 1.0 INR Coagulation Comments Other Results Medications reviewed Problem\Assessment\Plan 54 years old male with a history of hypertension, diabetes mellitus, meth use, cannabis abuse, presented to the ER for evaluation of abdominal pain. 1. Incarcerated right inguinal hernia with small-bowel obstruction: Patient underwent open repair of the right inguinal hernia using the senior technique and laparotomy with small-bowel resection by Dr. Hutchisno. Patient is doing well postoperatively. 2. NIDDM: Diet per surgery. Hyper/hypoglycemia protocol. Hold metformin and glipizide 3. Code status: Full code Date of Service: Feb 10, 2025 Billing Provider: GEORGETTE ALSTON MD Common Visit Codes: [id number] INP/OBS CARE(MOD) GEORGETTE ALSTON MD Feb 10, 2025 16:27
[2025-02-10] MEDS: nicotine 14mg patch - 24hr TD SCH (16:40)
[2025-02-10] MEDS: mag hydrox/Alum hydrox/simeth 30ml oral suspension PO PRN (16:40)
[2025-02-10] MEDS: ondansetron/PF 4mg/2ml inj IV PRN (18:57)
[2025-02-10] MEDS: metoclopramide 5 mg/ml inj IV PRN (22:26)
[2025-02-11 01:20] LABS: LEUKOCYTE ESTERASE ,URINE NEGATIVE (Neg); NITRITES, URINE NEGATIVE (Neg); OCCULT BLOOD,URINE MODERATE (Neg)
[2025-02-11 01:28] LABS: UA COLLECTION TYPE CLN CATCH MIDSTREAM
[2025-02-11 01:30] LABS: URINE AMPHETAMINE SCREEN POSITIVE (Neg); URINE BARBITUATE SCREEN NEGATIVE (Neg); URINE BENZODIAZEPINES SCREEN NEGATIVE (Neg); URINE CANNABINOID SCREEN NEGATIVE (Neg); URINE COCAINE SCREEN NEGATIVE (Neg); URINE METHADONE SCREEN NEGATIVE (Neg); URINE OPIATE SCREEN POSITIVE (Neg); URINE PHENCYCLIDINE SCREEN NEGATIVE (Neg)
[2025-02-11 01:31] LABS: FINE GRANULAR CAST 0-3 /LPF (NEGATIVE); MUCUS STRANDS MODERATE /LPF (Neg); SQUAMOUS EPITHELIAL CELL,UR FEW /LPF (FEW)
[2025-02-11 05:00] VITALS: BP 158/92; PULSE 77; RESP 20; TEMP 98.3; O2SAT 96
[2025-02-11 05:57] LABS: MEAN PLATELET VOLUME 9.0 FL (7.4-10.4); RED CELL DISTRIBUTION WIDTH 14.1 % (11.5-14.5)
[2025-02-11 06:27] LABS: CREATININE 0.93 MG/DL (0.60-1.10); TOTAL CARBON DIOXIDE 29.4 MMOL/L (24-32); eCRCL 91 ML/MIN; eGFR 84 ML/MIN
[2025-02-11 08:00] VITALS: RESP 16
[2025-02-11 11:00] VITALS: BP 154/85; PULSE 74; RESP 16; TEMP 97.4; O2SAT 97
--- NOTE | 2025-02-11 17:17 | PROGRESS NOTE ---
Progress Note ID Providers to CC ~ Progress Note Progress Note: pain improving/vss/abd-distended/labs noted a/p 1. s/p repair yovani rih-slow progress/cont supportive care ASHLI FITCH MD Feb 11, 2025 17:17
--- NOTE | 2025-02-11 17:31 | PROGRESS NOTE ---
Daily Progress Note Providers to CC ~ Antibiotic Timeout Antibiotic Ordered?: Yes Subjective Patient is resting comfortably. Objective Vital Signs Date Time Temp Pulse Resp B/P (MAP) Pulse Ox O2 Delivery O2 Flow Rate FiO2 02/11/25 17:01 16 02/11/25 11:00 97.4 74 154/85 (108) 97 Room Air 02/11/25 08:00 0.0 Result Diagram: 02/11/25 0500 02/11/25 0500 Opens eyes to his name, sleeping. HEENT normocephalic atraumatic extraocular movements are intact Neck supple, no JVD Chest: Clear to auscultation, no wheezes crackles rhonchi Heart rate regular rate rhythm, no murmur or gallop rub Abdomen: Tender as expected. Bandage over the surgical incision noted, dry. Bowel sounds outside the bandage are audible. Extremities no cyanosis clubbing or edema Neuro exam is nonfocal. Coagulation Studies Laboratory Tests Test 02/08/25 22:26 Prothrombin Time 10.2 SECONDS (9.0-12.0) INR International Normalized Ratio 1.0 INR Coagulation Comments Other Results Medications reviewed Problem\Assessment\Plan 54 years old male with a history of hypertension, diabetes mellitus, meth use, cannabis abuse, presented to the ER for evaluation of abdominal pain. 1. Incarcerated right inguinal hernia with small-bowel obstruction: Patient underwent open repair of the right inguinal hernia using the senior technique and laparotomy with small-bowel resection by Dr. Hutchison. Patient is doing well postoperatively. Encourage ambulation. 2. NIDDM: Diet per surgery. Hyper/hypoglycemia protocol. Hold metformin and glipizide 3. Code status: Full code Date of Service: Feb 11, 2025 Billing Provider: GEORGETTE ALSTON MD Common Visit Codes: [id number] INP/OBS CARE(MOD) GEORGETTE ALSTON MD Feb 11, 2025 17:31
[2025-02-11 18:00] VITALS: BP 119/74; PULSE 75; RESP 17; TEMP 98.5; O2SAT 95
[2025-02-11 20:00] VITALS: RESP 17; O2SAT 95
[2025-02-11 22:30] VITALS: BP 106/60; PULSE 74; RESP 16; TEMP 98.3; O2SAT 99
[2025-02-12 05:00] VITALS: BP 147/95; PULSE 70; RESP 20; TEMP 98.4; O2SAT 98
[2025-02-12 05:44] LABS: MEAN PLATELET VOLUME 8.7 FL (7.4-10.4); RED CELL DISTRIBUTION WIDTH 14.2 % (11.5-14.5)
[2025-02-12 06:09] LABS: CREATININE 0.78 MG/DL (0.60-1.10); TOTAL CARBON DIOXIDE 30.5 MMOL/L (24-32); eCRCL 109 ML/MIN; eGFR > 90 ML/MIN
[2025-02-12 10:00] VITALS: BP 118/77; PULSE 68; RESP 14; TEMP 98.1; O2SAT 95
[2025-02-12 10:12] VITALS: RESP 18; O2SAT 98
[2025-02-12] MEDS: HYDROcodone/acetaminophen 10/325mg tab PO PRN (12:14)
[2025-02-12 13:19] VITALS: RESP 18
[2025-02-12] MEDS ORDERED: magnesium hydroxide 30ml (MOM) UD suspension PO SCH (14:10)
--- NOTE | 2025-02-12 21:05 | DISCHARGE SUMMARY ---
Discharge Summary Providers to CC ~ Discharge Summary Admission Diagnosis: INCARCERATED [facility] Hospital Course DATE OF ADMISSION: 02/08/2025 DATE OF DISCHARGE: 02/12/2025 the patient left AMA at 2:34 p.m. Discharge Diagnosis\\Comment: Incarcerated right inguinal hernia with a small-bowel obstruction, voi-rquzdex-demvqobne diabetes mellitus, methamphetamine use disorder, hypertension Operations\\Procedures: * Open repair of right inguinal hernia using the Bassini technique. * Laparotomy with small bowel resection. Consultants: Dr Frantz Hutchison surgeon Complications: Unknown the patient left AMA at 2:34 p.m. on 02/12/2025 Condition on DC: Stable Discharge Summary: The patient is admitted by resident physician BIANKA Beal , under the supervision of NINI Francisco MD with the following HPI:"54-year-old male with past medical history of hypertension, diabetes, meth, cannabinoid abuse presented to the ED with complaints of abdominal pain. Patient was given Dilaudid 1 mg in the ED for pain. He instantly became drowsy. CT scan of the abdomen was done and showed Small-bowel obstruction with transition point at the right inguinal hernia, No evidence of incarceration or perforation, Right hydrocele. Patient was consulted by surgeon who examined the patient and decided to take the patient to the OR tomorrow morning as the patient was drowsy,not awake and was not able to give consent. Patient was shifted to the surgical floor, is sleepy, drowsy, was not responding to commands, hence was not able to obtain proper history." The patient was taken to the OR by Dr. Hutchison on 02/09/2025 for a open right inguinal hernia using Bassini technique as well as a laparotomy with small-bowel resection. The patient was doing well postop however had not had a bowel movement yet and was not cleared to be discharged by Dr. Hutchison on the however the patient was adamant that he was going to leave and left AMA at 2:34 p.m. I was able to speak in evaluate the patient prior to the patient leaving AMA. The patient has sev-hokrbdx-yoldyfwno diabetesitus and was treated with a hyper and hypoglycemic protocol during hospitalization The patient has methamphetamine use disorder which is likely a contributing factor for the reason the patient left AMA as the patient's RN informs me that the patient's friend had mentioned to he had something for the patient. Gen. No acute distress alert and oriented 4 Lungs clear to ascultation bilaterally, no wheezes rales or rhonchi appreciated Heart normal sinus rhythm no murmurs rubs or clicks noted Abdomen soft nontender bowel sounds are normoactive Lower extremities no clubbing cyanosis, nor edema appreciated bilaterally The patient was not discharged but was seen and evaluated on day that he left AMA. Dr Hutchison was notified that the patient was leaving AMA. *Problems/Diagnosis: (1) Incarcerated inguinal hernia Status: Acute Total Time Spent on D/C: > 30 Minutes Date of Service: Feb 12, 2025 Billing Provider: NELSON MICHELLE DO Common Visit Codes: [id number] INP/OBS CARE(HIGH) NELSON MICHELLE DO Feb 12, 2025 21:04
== END 2025-02-12 14:30 | disposition left against medical advice (07) | DRG 230 ==
LOC: ER 08:32 → SUR 3N 20:47
PROVIDERS: ADMIT Internal Medicine Sleep Medicine; ATTEND Internal Medicine
PROC: BW211ZZ Computerized Tomography (CT Scan) of Abdomen and Pelvis using Low Osmolar Contrast (ICD-10-PCS; 2025-02-08)
PROC: 0YQ50ZZ Repair Right Inguinal Region, Open Approach (ICD-10-PCS; 2025-02-09)
PROC: 0DB80ZZ Excision of Small Intestine, Open Approach (ICD-10-PCS; principal; 2025-02-09 11:09)
DX: K40.30 Unilateral inguinal hernia, with obstruction, without gangrene, not specified as recurrent (principal); K55.029 Acute infarction of small intestine, extent unspecified; E11.52 Type 2 diabetes mellitus with diabetic peripheral angiopathy with gangrene; E11.40 Type 2 diabetes mellitus with diabetic neuropathy, unspecified; Z53.21 Procedure and treatment not carried out due to patient leaving prior to being seen by health care provider; E78.00 Pure hypercholesterolemia, unspecified; I10 Essential (primary) hypertension; F15.10 Other stimulant abuse, uncomplicated; F12.10 Cannabis abuse, uncomplicated
CPT/HCPCS: 36415; 74177; 80048; 80053; 80061; 80305; 81001; 82948; 83036; 83605; 83690; 83735; 84145; 85025; 85610; 87040; 87081; 93005; 96361; 96374; 96375; 99285; A4618; A6253; A6258; A6407; A6449; A7000; G0378; J0131; J0780; J1171; J1200; J1815; J1885; J2003; J2250; J2270; J2405; J2470; J2543; J2704; J2710; J2765; J3010; J3490; J7030; J7120; Q9967

== ENCOUNTER 2025-04-20 10:37 | Emergency (ER) | payer MEDICAID ==
[~2025-04-20] VITALS: Ht 177.8 cm; Wt 77.6 kg
[2025-04-20 10:49] VITALS: TEMP 97
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
[2025-04-20] MEDS ORDERED: CLIN-232 PO (12:10)
[2025-04-20 12:23] VITALS: BP 127/92; PULSE 73; RESP 16; O2SAT 94
== END 2025-04-20 12:29 | disposition home or self-care (01) ==
LOC: ER 10:38
DX: K61.0 Anal abscess (principal); I10 Essential (primary) hypertension; E11.9 Type 2 diabetes mellitus without complications; E78.00 Pure hypercholesterolemia, unspecified; F12.90 Cannabis use, unspecified, uncomplicated; F15.90 Other stimulant use, unspecified, uncomplicated; Z87.891 Personal history of nicotine dependence
CPT/HCPCS: 99283

== ENCOUNTER 2025-05-11 18:09 | Emergency (ER) | payer MEDICAID ==
[~2025-05-11] VITALS: Ht 177.8 cm; Wt 76.0 kg
[2025-05-11 18:18] VITALS: BP 151/89; PULSE 98; RESP 15; O2SAT 98
--- NOTE | 2025-05-11 18:44 | RADIOLOGY REPORT ---
CLINICAL INDICATION: ANKLE PAIN TECHNIQUE: DI ANKLE, COMPLETE(3VW MIN) Comparison: ANKLE, COMPLETE(3VW MIN) on DOS: 11/08/22 FINDINGS/IMPRESSION: : There is no evidence of acute fracture or dislocation. Soft tissues are unremarkable.
--- NOTE | 2025-05-11 18:44 | RADIOLOGY REPORT ---
CLINICAL INDICATION: FOOT PAIN TECHNIQUE: DI FOOT, COMPLETE (3VW MIN) Comparison: FOOT, COMPLETE (3VW MIN) on DOS: 11/08/22 FINDINGS/IMPRESSION: : There is no evidence of acute fracture or dislocation. Soft tissues are unremarkable.
[2025-06-05] MEDS ORDERED: ALBU8HFA INH (01:19)
[2025-06-05] MEDS ORDERED: PRED50TA PO (01:19)
[2025-06-05] MEDS ORDERED: ROBDML PO (01:19)
[2025-06-05] MEDS ORDERED: AZIT250T83 PO (01:19)
[2025-06-05] MEDS ORDERED: HYDR50CA5 PO (01:23)
== END 2025-05-11 19:31 | disposition home or self-care (01) ==
LOC: ER 18:10
DX: M79.671 Pain in right foot (principal); M25.571 Pain in right ankle and joints of right foot
CPT/HCPCS: 73610; 73630; 99282; L4360; 99281; 99283; 99284

== ENCOUNTER 2025-05-29 11:15 | Emergency (ER) | payer MEDICAID ==
[~2025-05-29] VITALS: Ht 177.8 cm; Wt 80.5 kg
[2025-05-29 11:22] VITALS: BP 131/69; PULSE 60; RESP 20; O2SAT 99
--- NOTE | 2025-05-29 12:31 | Physician Documentation ---
History of Present Illness ~ Chief Complaint: Cold, cough & congestion Stated Complaint: COLD SYMPTOMS Time Seen by MD: 12:25 Primary Medical Doctor: None HPI 54 year old male presents to the emergency department for complaints of a cough that has been present for three days. He states that he is in pain, complaining of cold chills and muscle pain in addition to the cough. He endorses smoking and states that he has a family history of asthma. Medication Reconciliation Allergies: Coded Allergies: No Known Allergies (Unverified , 05/29/25) Scheduled Amox Tr/Potassium Clavulanate (Augmentin 875-125 Tablet), 1 TAB PO Q12H Benzonatate* (Benzonatate*), 1 CAP PO Q8H Cefuroxime Axetil (Cefuroxime), 1 TAB PO Q12H Dextromethorphan HBr (Tussin Cough), 5 ML PO Q12H Glipizide (Glipizide ER), 1 TAB PO DAILY Ibuprofen (Ibuprofen), 1 TAB PO Q8H Ibuprofen (Ibuprofen), 1 TAB PO Q8H Metformin HCl (Metformin HCl), 1 TAB PO Q12H Metformin HCl (Metformin HCl), 1 TAB PO Q12H Nirmatrelvir/Ritonavir (Paxlovid Co-Pack (Eua)), 3 EACH PO BID Past Medical History Past Medical History: High Cholesterol, Hypertension, Bronchitis, Hernia, Diabetes, *INFECTIOUS DZ*, MRSA Abscess Past Surgical History: noncontributory Alcohol Use: None Drug Use: marijuana, methamphetamine Lives In: Homeless Occupation: unemployed Review of Systems All Other Systems at this time: Reviewed and Negative ROS Patient was asked, but denied any other symptoms. All other systems are negative other than those mentioned above. Physical Exam Vital Signs: RN Vital Signs have been reviewed: Yes, Temperature: 97.2, Source: Temporal, Heart Rate: 60, Respiratory Rate: 20, BP: 131/69, Pulse Oximetry: 99, Weight: 80.500 Oxygen Flow Rate: 0 Pulse Oximetry Reflects: adequate oxygenation Physical Exam General: Alert, no apparent distress. HEENT: PERRL, EOMI, no injection, moist mucous membranes. Neck: Full range of motion. Respiratory: Course lung sounds with no wheeze, crackles, and rails. Chest: No accessory muscle use. Cardiovascular: Regular rate and rhythm, no murmurs. Gastrointestinal: Soft, nontender, nondistended. Bowels sounds present. Extremities: Normal range of motion, no deformity. Neurologic: Oriented x4. Psychiatric: Normal mood and affect. Skin: Normal color, warm and dry. No edema, no ecchymosis. Progress Results/Orders Results/Orders Orders - CJ GOODMAN NP Chest,Single View (05/29/25 13:06) Completed Orders - CJ GOODMAN NP Chest,Single View (05/29/25 13:06) Benzonatate Capsule (Tessalon Mona Cap (05/29/25 13:15) Vital Signs 05/29/25 05/29/25 11:22 13:16 Temp 97.2 97.2 Pulse 60 Resp 20 B/P (MAP) 131/69 Pulse Ox 99 O2 Flow Rate 0 Medical Decision Making Additional information obtaine: old records Findings The patient presents with a dry cough which I suspect is secondary to a flu virus. I advised the patient that an antiviral would likely not be beneficial at this time. Going to send him home with Ricarda Dunn to help with the cough and advised to maintain adequate hydration and rest X-ray was negative for any opacities which would be attributable to pneumonia this is per my interpretation Differential Dx:Considerations: Include: Allergic rhinitis, Influenza, Otitis media, Peritonsillar abscess, Pharyngitis-Diphtheria, Pharyngitis-Streptoccal, Pharyngitis-Viral, Pneumonia, Pnuemonitis, Sinusitis, URI, Other Departure Time of Disposition: 12:36 Disposition: 01 HOME / SELF CARE / HOMELESS Impression: Primary Impression: Flu-like symptoms Condition: Stable Discharge Instructions: Cough, Adult Referrals: NO PRIMARY CARE PROVIDER (PCP) Prescriptions Benzonatate* (Benzonatate*) 100 Mg Capsule 1 CAP PO Q8H for cough for 10 Days, #30 CAP Prov: CJ GOODMAN CARTOGRAPHY PROFESSOR 05/29/25 Education Educated: Patient Educated regarding: diagnosis, treatment, prognosis Signature Scribe Signature: Scribed for Cj Goodman Brake Lining Curer by Laura Leo . 05/29/25 12:36 Attestation: Scribed for Cj Goodman Brake Lining Curer by Cj Spicer NP . 05/29/25 18:39 CJ GOODMAN NP May 29, 2025 12:31 LAURA FIERRO May 29, 2025 12:36
[2025-05-29] MEDS ORDERED: BENZ-38 PO (12:49)
[2025-05-29 13:16] VITALS: TEMP 97.2
--- NOTE | 2025-05-29 13:17 | RADIOLOGY REPORT ---
CHEST RADIOGRAPH INDICATION: cough TECHNIQUE: Single frontal view of the chest was obtained COMPARISON: DI CHEST,SINGLE VIEW on DOS: 05/31/24, DI CHEST,TWO VIEWS on DOS: 05/09/24, DI CHEST,SINGLE VIEW on DOS: 03/21/24, DI CHEST,SINGLE VIEW on DOS: 01/14/23, CHEST,TWO VIEWS on DOS: 08/20/22 FINDINGS: Lines and Tubes: None Lungs: Clear Pleura: No effusion. No pneumothorax. Cardiomediastinal contours: Unremarkable Bones: Unremarkable IMPRESSION: No acute disease.
== END 2025-05-29 13:17 | disposition home or self-care (01) ==
LOC: ER 11:16
DX: J11.1 Influenza due to unidentified influenza virus with other respiratory manifestations (principal); E11.9 Type 2 diabetes mellitus without complications; E78.00 Pure hypercholesterolemia, unspecified; F17.200 Nicotine dependence, unspecified, uncomplicated; F12.90 Cannabis use, unspecified, uncomplicated; F15.90 Other stimulant use, unspecified, uncomplicated; I10 Essential (primary) hypertension; Z86.14 Personal history of Methicillin resistant Staphylococcus aureus infection; Z79.899 Other long term (current) drug therapy; Z59.00 Homelessness unspecified; Z56.0 Unemployment, unspecified
CPT/HCPCS: 71045; 99283